=== PATIENT | male | born 1935 | race Caucasian/White ===

== ENCOUNTER 2018-03-20 12:03 | Inpatient (IN) | payer MEDICARE ==
[2018-03-20] MEDS ORDERED: Sodium Chloride 0.9% 1,000 ML IV ONE (12:38)
[2018-03-20] MEDS ORDERED: cefTRIAXone IV 1 gm in Dextros 50 ML IV STA (12:38)
[2018-03-20] MEDS ORDERED: Albuterol 0.083% Inhal Sol (2.5 mg/3 mL) UD INH STA (12:38)
--- NOTE | 2018-03-20 12:38 | C.PDOC ---
History Of Present Illness Hx obtained via relative. 83 year old male presents to the ER with a complaint of cough and fever for the past week associated with decreased appetite. Patient was seen by Dr. Gilliam today who noticed patient had a low grade fever and advised patient to come to the ER for possible pneumonia. Patient has a Hx of non hodgkin's lymphoma, last treatment was in 06/2017. Patient was recently admitted at [facility] for low blood pressure. Denies change in mental status, diarrhea, nausea, vomiting, chest pain, SOB, or abdominal pain. Time Seen by Provider: 03/20/18 12:07 Chief Complaint (Nursing): Cough, Cold, Congestion History Per: Family History/Exam Limitations: no limitations Onset/Duration Of Symptoms: Days Current Symptoms Are (Timing): Still Present Sick Contacts (Context): None Associated Symptoms: Fever, Cough. denies: Nausea, Vomiting, Diarrhea, Other ( Chest pain, SOB, Abdominal pain) Ear Symptoms: Bilateral: None Recent travel outside of the [place]: No Past Medical History Reviewed: Historical Data, Nursing Documentation, Vital Signs Vital Signs: Last Vital Signs Temp 99.7 F H 03/20/18 12:26 Pulse 89 03/20/18 13:46 Resp 14 03/20/18 13:46 BP 108/64 03/20/18 13:46 Pulse Ox 93 L 03/20/18 13:46 - Medical History PMH: HTN Surgical History: Appendectomy Family History: States: Unknown Family Hx - Social History Hx Alcohol Use: No Hx Substance Use: No - Immunization History Hx Tetanus Toxoid Vaccination: No Hx Influenza Vaccination: No Hx Pneumococcal Vaccination: No Review Of Systems Except As Marked, All Systems Reviewed And Found Negative. Constitutional: Positive for: Fever, Other (Decreased appetite) Cardiovascular: Negative for: Chest Pain, Palpitations Respiratory: Positive for: Cough. Negative for: Shortness of Breath Gastrointestinal: Negative for: Nausea, Vomiting, Abdominal Pain, Diarrhea Neurological: Negative for: Weakness, Numbness, Altered Mental Status Physical Exam - Physical Exam Appears: Non-toxic Skin: Normal Color, Warm, Dry Head: Atraumatic, Normacephalic Eye(s): bilateral: Normal Inspection Oral Mucosa: Moist Neck: Normal, Supple Chest: Other (Port in place on right chest wall) Cardiovascular: Rhythm Regular Respiratory: Rhonchi (at right base), Other (Active nonproductive cough, Bronchocongestion) Gastrointestinal/Abdominal: Soft, No Tenderness Back: No CVA Tenderness Neurological/Psych: Oriented x3, Normal Speech ED Course And Treatment - Laboratory Results Result Diagrams: 03/20/18 13:10 03/20/18 13:10 O2 Sat by Pulse Oximetry: 96 (Room air) Pulse Ox Interpretation: Normal - Radiology CXR: Interpreted by Me (No prior for comparison), Viewed By Me CXR Interpretation: Yes: Other (Multiple curtis ball lesions, right greater than left) Progress - Re-Evaluation Re-evaluation Note: 03/20/18 14:27 SP NEB PS FEELS BETTER. VSS. SBP 108. D/W DR WHITE MED EXECUTIVE VICE PRESIDENT AND CHIEF FINANCIAL OFFICER WILL ADMIT - Data Reviewed Data Reviewed: Lab, Diagnostic imaging, EKG, Old records Medical Decision Making Medical Decision Making: Plan: * Blood work * EKG * CXR * Urinalysis * Albuterol nebulizer * IV fluids * Zithromax * Rocephin Disposition Counseled Patient/Family Regarding: Studies Performed, Diagnosis - Disposition Disposition: HOSPITALIZED Disposition Time: 14:28 Condition: STABLE Forms: [employer] (Setswana) - POA Present On Arrival: None Core Measure Indicators: Pneumonia - Clinical Impression Clinical Impression: Pneumonia, Non-Hodgkin lymphoma - Scribe Statement The provider has reviewed the documentation as recorded by the Scribe Rakan Bowie All medical record entries made by the Scribe were at my direction and personally dictated by me. I have reviewed the chart and agree that the record accurately reflects my personal performance of the history, physical exam, medical decision making, and the department course for this patient. I have also personally directed, reviewed, and agree with the discharge instructions and disposition. Decision To Admit - Pt Status Changed To: Hospital Disposition Of: Inpatient - Admit Certification Admit to Inpatient:: After my assessment, the patient will require hospitalization for at least two midnights. This is because of the severity of symptoms shown, intensity of services needed, and/or the medical risk in this patient being treated as an outpatient. - InPatient: Physician Admission Certification:: SEE NOTE - . Bed Request Type: Regular Admitting Physician: Dara White Patient Diagnosis: Pneumonia, Non-Hodgkin lymphoma
[2018-03-20] MEDS ORDERED: Azithromycin 500mg/250ML NS 500 MG/250 ML BAG IV STA (12:41)
[2018-03-20] MEDS ORDERED: cefTRIAXone IV 1 gm in Dextros 50 ML IVPB ONE (13:09)
[2018-03-20] MEDS ORDERED: Albuterol-Ipratrop 3 mg / 0.5 (3 ml) UD ONE ×2 (13:17→20:44)
[2018-03-20 13:25] LABS: BASO # 0.1 K/uL (0.0-0.2); BASO % 0.6 % (0.0-2.0); EOS # 0.2 K/uL (0.0-0.7); EOS % 1.1 % (0.0-4.0); HEMOGLOBIN 10.9 g/dL (12.0-18.0); LYMPH # 0.8 K/uL (1.0-4.3); LYMPH % 5.3 % (20.0-40.0); MEAN CELL VOLUME 85.2 fL (80.0-94.0); MEAN CORPUSCULAR HEMOGLOBIN 28.3 pg (27.0-31.0); MEAN CORPUSCULAR HGB CONC 33.2 g/dL (33.0-37.0); MEAN PLATELET VOLUME 10.6 fL (7.2-11.7); MONO # 2.1 K/uL (0.0-0.8); MONO % 13.2 % (0.0-10.0); NEUT # 12.8 K/uL (1.8-7.0); NEUT % 79.8 % (50.0-75.0); PLATELET COUNT 136 K/uL (130-400); RBC 3.85 Mil/uL (4.40-5.90); RED CELL DISTRIBUTION WIDTH 20.1 % (11.5-14.5)
--- NOTE | 2018-03-20 13:35 | RAD ---
Chest x-ray single frontal view History: Pneumonia. Comparison: None available. Findings: Multiple pulmonary masses seen throughout both lungs which may represent underlying metastatic disease and or neoplasm. Correlation with chest CT is recommended. Confluent consolidative changes at the lung bases. Bilateral hilar prominence. Right chest wall port with tip extending into the cavoatrial junction. Degenerative changes in the spine and shoulders. Impression: Multiple pulmonary masses seen throughout both lungs which may represent underlying metastatic disease and or neoplasm. Correlation with chest CT is recommended. Confluent consolidative changes at the lung bases. Bilateral hilar prominence. Right chest wall port with tip extending into the cavoatrial junction.
[2018-03-20 13:45] LABS: ALB/GLOB RATIO 1.2 (1.0-2.1); ALBUMIN 2.9 g/dL (3.5-5.0); ANISOCYTOSIS SLIGHT; CALCIUM 9.2 mg/dl (8.6-10.4); EOSINOPHIL 3 % (0-4); HYPOCHROMIC SLIGHT; LYMPHOCYTE 8 % (20-40); MONOCYTE 14 % (0-10); NEUTROPHIL 75 % (50-75); PLATELET ESTIMATE NORMAL (NORMAL); POIKILOCYTOSIS SLIGHT; TOTAL CELLS COUNTED 100
[2018-03-20 13:46] LABS: MICROCYTOSIS SLIGHT
[2018-03-20] MEDS ORDERED: Azithromycin 500mg/250ML NS 500 MG/250 ML BAG IVPB ONE (13:51)
--- NOTE | 2018-03-20 14:15 | CT ---
Date of Service: 03/20/18 CT chest without IV contrast Indication: COUGH, ABN CXR. HO NONHODG LYMPHOMA Technique: Contiguous axial images were obtained through the chest without intravenous contrast enhancement. Sagittal and coronal reconstructions were generated and reviewed. This CT exam was performed using 1 or more of the following dose reduction techniques: Automated exposure control, adjustment of the MAA and/or kV according to patient size, and/or use of iterative reconstruction technique. Radiation dose (DLP): 290.76 MGy-cm. Comparison: Chest x-ray performed 03/20/18 Findings: Right-sided MediPort extends the level of the right atrium. Visualized portions of the inferior thyroid gland appear heterogeneous. . The mediastinal and hilar vascular structures appear within normal limits. The heart appears within normal limits of size. Dense atherosclerotic calcifications including coronary artery calcifications. Mediastinal adenopathy including 9 mm pretracheal lymph node. Please note evaluation for adenopathy is limited due to lack of IV contrast. Innumerable bilateral pulmonary masses compatible with metastatic disease. Largest lesion measures approximately 4.6 cm within the lateral right lower lobe. No focal consolidation. No pleural effusion. No pneumothorax. Limited visualization of the noncontrast upper abdomen: Bilateral low-density renal lesions including 4.2 x 5.1 cm low-density left renal lesion measuring approximately 11 HU (likely cyst), and partially imaged 3.1 x 4.7 cm right lower pole renal hypodensity also measuring approximately 11 HU. Degenerative changes of the spine. Impression: Right-sided MediPort extends the level the right atrium. Innumerable bilateral pulmonary masses consistent with metastatic disease. Mediastinal adenopathy. Partially imaged bilateral low-density renal lesions may reflect cysts, however incompletely characterized due to lack of IV contrast and incomplete inclusion within the confines of a chest CT. Additional findings as above.
--- NOTE | 2018-03-20 15:13 | CP.PCM.PN ---
Subjective - Date & Time of Evaluation Date of Evaluation: 03/20/18 Time of Evaluation: 15:13 - Subjective Subjective: PGY2 Medicine Note for Dr. White Patient is a 83 year old male with a past medical history of Non-Hodgkin's Lymphoma (s/p chemo - last dose 06/2017), gout, BPH and hypotension (hx of multiple falls) presenting to the hospital after being instructed to come to in by Dr. Gilliam. The patient is latvian speaking. His daughter is at bedside and translated for patient. Patient has a history of a non-productive cough. Over the past week the cough has been becoming more and more productive. He has been producing large amounts of clear phlegm. The patient has also been experiencing low grade fevers. Patient also has a history of hypotension. He normally is admitted to [facility] but decided to come here today. He has no other complaints at this time. Denies nausea, vomiting, diarrhea, constipation, chest pain, shortness of breath, abdominal pain, numbness or tingling. PMD: [facility]. Michelle Kellogg ([facility]) PMH: Non-Hodgkin's Lymphoma (s/p chemo - last dose 06/2017), gout, BPH and hypotension (hx of multiple falls) PSH: Portacath (right side), Appendectomy Social: Denies tobacco, alcohol and illicit drug use Objective - Vital Signs/Intake and Output Vital Signs (last 24 hours): Temp Pulse Resp BP Pulse Ox 99.7 F H 89 14 108/64 96 03/20/18 12:26 03/20/18 13:46 03/20/18 13:46 03/20/18 13:46 03/20/18 14:32 - Medications Medications: Current Medications Sodium Chloride (Sodium Chloride 0.9%) 1,000 mls @ 100 mls/hr IV .Q10H ONE Stop: 03/20/18 22:37 Last Admin: 03/20/18 13:07 Dose: 100 mls/hr - Labs Labs: 03/20/18 13:10 03/20/18 13:10 - Constitutional Appears: No Acute Distress, Chronically Ill - Head Exam Head Exam: ATRAUMATIC, NORMOCEPHALIC - Eye Exam Eye Exam: EOMI. absent: Normal appearance (Cataracts ), Scleral icterus - ENT Exam ENT Exam: Mucous Membranes Moist - Neck Exam Neck Exam: absent: Lymphadenopathy - Respiratory Exam Respiratory Exam: Clear to Ausculation Bilateral, NORMAL BREATHING PATTERN ( patient coughing throughout examination). absent: Accessory Muscle Use, Rales, Rhonchi, Wheezes, Respiratory Distress - Cardiovascular Exam Cardiovascular Exam: REGULAR RHYTHM, +S1, +S2 Additional comments: Port in place on right chest wall - GI/Abdominal Exam GI & Abdominal Exam: Soft. absent: Distended, Firm, Guarding, Rigid, Tenderness - Extremities Exam Extremities Exam: Normal Inspection. absent: Calf Tenderness, Pedal Edema - Back Exam Back Exam: NORMAL INSPECTION. absent: CVA tenderness (L), CVA tenderness (R), paraspinal tenderness, rash noted, tenderness, vertebral tenderness - Neurological Exam Neurological Exam: Alert, Awake, Oriented x3 - Psychiatric Exam Psychiatric exam: Normal Affect, Normal Mood - Skin Skin Exam: Dry, Warm Assessment and Plan - Assessment and Plan (Free Text) Plan: Non-Hodgkin's Lymphoma/Pneumonia Hem/Onc consulted, Dr. Gilliam (pt's outpatient Oncologist) afebrile WBC 16 VBG pending Blood Cultures 03/20: pending Urine Cultures 03/20: pending CXR 03/20: * Multiple pulmonary masses seen throughout both lungs which may represent underlying metastatic disease and or neoplasm. Correlation with chest CT is recommended * Confluent consolidative changes at the lung bases * Bilateral hilar prominence * Right chest wall port with tip extending into the cavoatrial junction Chest CT w/o IV contrast 03/20: * Right-sided MediPort extends the level the right atrium * Innumerable bilateral pulmonary masses consistent with metastatic disease * Mediastinal adenopathy * Partially imaged bilateral low-density renal lesions may reflect cysts, however incompletely characterized due to lack of IV contrast and incomplete inclusion within the confines of a chest CT Medications: * Azithromycin 500mg IVPB daily (started on 03/20) * Rocephin 1gm IVPB daily (started on 03/20) * Duoneb 3mL INH q6h prn * Benzonatate 200mg PO daily * Calcitriol 0.25mcg PO MWF hx of Hypotension continue to monitor hx of BPH restart home meds: * Tamsulosin 0.4mg PO daily * Finasteride 5mg PO daily hx of Gout restart home meds: * Allopurinol 300mg PO daily Prophylactic Care DVT: Heparin 5,000u SC q12h GI: Protonix 40mg PO daily (home medication) SCDs Crestor 20mg PO daily (home medication) All medical management per Dr. White
[2018-03-20 16:15] LABS: SQUAMOUS EPITHIAL < 1 /hpf (0-5); URINE BACTERIA RARE (<OCC); URINE BILIRUBIN NEGATIVE (NEGATIVE); URINE BLOOD NEGATIVE (NEGATIVE); URINE CLARITY Clear (Clear); URINE COLOR Yellow (YELLOW); URINE GLUCOSE (UA) NORMAL (Normal); URINE LEUKOCYTE ESTERASE 2+ Leu/uL (Negative); URINE PROTEIN NEGATIVE (NEGATIVE)
[2018-03-20] MEDS: Sodium Chloride 0.9% 1,000 ML IV SCH (17:54)
[2018-03-20] MEDS: Albuterol-Ipratrop 3 mg / 0.5 (3 ml) UD INH PRN (20:47)
[2018-03-21 07:29] LABS: BASO # 0.1 K/uL (0.0-0.2); BASO % 0.6 % (0.0-2.0); EOS # 0.3 K/uL (0.0-0.7); EOS % 2.5 % (0.0-4.0); HEMOGLOBIN 9.6 g/dL (12.0-18.0); LYMPH # 0.8 K/uL (1.0-4.3); LYMPH % 5.9 % (20.0-40.0); MEAN CELL VOLUME 84.9 fL (80.0-94.0); MEAN CORPUSCULAR HEMOGLOBIN 28.6 pg (27.0-31.0); MEAN CORPUSCULAR HGB CONC 33.7 g/dL (33.0-37.0); MEAN PLATELET VOLUME 10.7 fL (7.2-11.7); MONO # 1.7 K/uL (0.0-0.8); MONO % 13.4 % (0.0-10.0); NEUT % 77.6 % (50.0-75.0); PLATELET COUNT 137 K/uL (130-400); RBC 3.36 Mil/uL (4.40-5.90); RED CELL DISTRIBUTION WIDTH 19.9 % (11.5-14.5); WHITE BLOOD COUNT 12.8 K/uL (4.8-10.8)
[2018-03-21 07:43] LABS: ALB/GLOB RATIO 1.2 (1.0-2.1); ALBUMIN 2.4 g/dL (3.5-5.0); ALT/SGPT 32 U/L (21-72); AST/SGOT 12 U/L (17-59); BLOOD UREA NITROGEN 22 mg/dL (9-20); CALCIUM 8.1 mg/dl (8.6-10.4); GFR NON-AFRICAN AMERICAN > 60
[2018-03-21 09:27] LABS: BANDS 1 % (0-2); TOTAL CELLS COUNTED 100
[2018-03-21 09:28] LABS: ANISOCYTOSIS SLIGHT; HYPOCHROMIC SLIGHT; LYMPHOCYTE 5 % (20-40); MONOCYTE 12 % (0-10); NEUTROPHIL 82 % (50-75); PLATELET ESTIMATE NORMAL (NORMAL); POIKILOCYTOSIS SLIGHT
[2018-03-21] MEDS ORDERED: Piperacill/Tazo 2.25gm in Dex 2.25 GM/50 ML BAG IVPB SCH (10:00)
[2018-03-21] MEDS ORDERED: Vancomycin 1 gm/NS 200 ml 1 GM/200 ML BAG IVPB SCH (10:00)
[2018-03-21] MEDS: Pantoprazole 40 mg EC Tab PO SCH (10:51)
[2018-03-21] MEDS: Azithromycin 500 MG in Sodium Chloride 0.9% 250 ML IVPB SCH (10:53)
[2018-03-21] MEDS: Sodium Chloride 0.9% 1,000 ML IV SCH (13:47)
--- NOTE | 2018-03-21 14:49 | CP.PCM.PN ---
Subjective - Date & Time of Evaluation Date of Evaluation: 03/21/18 Time of Evaluation: 14:46 - Subjective Subjective: PROGRESS NOTE FOR DR. ZUÑIGA'S SERVICE Pt seen and examined at bedside. She denies any acute complaints including chest pain/SOB. She reports improvement in her overall status. No acute events overnight as per nursing. Objective - Vital Signs/Intake and Output Vital Signs (last 24 hours): Temp Pulse Resp BP Pulse Ox 98.1 F 82 18 122/68 96 03/21/18 07:00 03/21/18 07:00 03/21/18 07:00 03/21/18 07:00 03/21/18 07:00 Intake and Output: 03/21/18 03/21/18 06:59 18:59 Intake Total 170 Balance 170 - Medications Medications: Current Medications Albuterol/Ipratropium (Duoneb 3 Mg/0.5 Mg (3 Ml) Ud) 3 ml INH RQ6 PRN PRN Reason: Shortness of Breath Last Admin: 03/20/18 20:47 Dose: 3 ml Allopurinol (Zyloprim) 300 mg PO DAILY [facility] Last Admin: 03/21/18 10:48 Dose: 300 mg Benzonatate (Tessalon Perles) 200 mg PO DAILY [facility] Last Admin: 03/21/18 10:52 Dose: 200 mg Calcitriol (Rocaltrol) 0.25 mcg PO MWF [facility] Finasteride (Proscar) 5 mg PO DAILY [facility] Last Admin: 03/21/18 10:51 Dose: 5 mg Heparin Sodium (Porcine) (Heparin) 5,000 units SC Q12 SARAH Last Admin: 03/21/18 10:52 Dose: 5,000 units Azithromycin 500 mg/ Sodium (Chloride) 250 mls @ 250 mls/hr IVPB DAILY SARAH PRN Reason: Protocol Last Admin: 03/21/18 10:53 Dose: 250 mls/hr Ceftriaxone Sodium 1 gm/ (Sodium Chloride) 100 mls @ 100 mls/hr IVPB DAILY SARAH PRN Reason: Protocol Last Admin: 03/21/18 10:52 Dose: 100 mls/hr Sodium Chloride (Sodium Chloride 0.9%) 1,000 mls @ 50 mls/hr IV .Q20H [facility] Last Admin: 03/20/18 17:54 Dose: 50 mls/hr Pantoprazole Sodium (Protonix Ec Tab) 40 mg PO DAILY [facility] Last Admin: 03/21/18 10:51 Dose: 40 mg Pneumococcal Polyvalent Vaccine (Pneumovax 23 Vaccine) 0.5 ml IM .ONCE ONE Stop: 03/22/18 10:01 Rosuvastatin Calcium (Crestor) 20 mg PO HS [facility] Last Admin: 03/20/18 22:23 Dose: 20 mg Tamsulosin HCl (Flomax) 0.4 mg PO DAILY [facility] Last Admin: 03/21/18 10:51 Dose: 0.4 mg Zolpidem Tartrate (Ambien) 5 mg PO HS PRN PRN Reason: Insomnia Last Admin: 03/20/18 22:23 Dose: 5 mg - Labs Labs: 03/21/18 07:08 03/21/18 07:08 - Constitutional Appears: No Acute Distress (continuous coughing) - Head Exam Head Exam: ATRAUMATIC, NORMOCEPHALIC - Eye Exam Eye Exam: EOMI, Normal appearance - ENT Exam ENT Exam: Mucous Membranes Moist - Respiratory Exam Respiratory Exam: Clear to Ausculation Bilateral, NORMAL BREATHING PATTERN - Cardiovascular Exam Cardiovascular Exam: REGULAR RHYTHM, +S1, +S2 - GI/Abdominal Exam GI & Abdominal Exam: Soft. absent: Tenderness - Extremities Exam Extremities Exam: absent: Pedal Edema - Neurological Exam Neurological Exam: Alert, Awake, Oriented x3 - Psychiatric Exam Psychiatric exam: Normal Affect, Normal Mood - Skin Skin Exam: Dry, Warm Assessment and Plan - Assessment and Plan (Free Text) Plan: Non-Hodgkin's Lymphoma/Pneumonia Hem/Onc consulted, Dr. Gilliam (pt's outpatient Oncologist) afebrile WBC 16-> 12.8 Blood Cultures 03/20: no growth Urine Cultures 03/20: no growth Sputum cx 03/21: pending Quant gold: pending CXR 03/20: * Multiple pulmonary masses seen throughout both lungs which may represent underlying metastatic disease and or neoplasm. Correlation with chest CT is recommended * Confluent consolidative changes at the lung bases * Bilateral hilar prominence * Right chest wall port with tip extending into the cavoatrial junction Chest CT w/o IV contrast 03/20: * Right-sided MediPort extends the level the right atrium * Innumerable bilateral pulmonary masses consistent with metastatic disease * Mediastinal adenopathy * Partially imaged bilateral low-density renal lesions may reflect cysts, however incompletely characterized due to lack of IV contrast and incomplete inclusion within the confines of a chest CT Medications: * Azithromycin 500mg IVPB daily (started on 03/20) * Rocephin 1gm IVPB daily (started on 03/20) * Duoneb 3mL INH q6h prn * Benzonatate 200mg PO daily * Calcitriol 0.25mcg PO MWF hx of Hypotension continue to monitor hx of BPH restart home meds: * Tamsulosin 0.4mg PO daily * Finasteride 5mg PO daily hx of Gout restart home meds: * Allopurinol 300mg PO daily Prophylactic Care DVT: Heparin 5,000u SC q12h GI: Protonix 40mg PO daily (home medication) SCDs Crestor 20mg PO daily (home medication) Case discussed with Dr. Zuñiga. Noted poor prognosis. All medical management per Dr. Zuñiga
[2018-03-21 18:43] VITALS: BMI 22.1
--- NOTE | 2018-03-21 19:01 | CON ---
Copied To: Renny Gilliam MD Attending MD: Renny Gilliam MD DATE: 03/21/2018 HISTORY OF PRESENT ILLNESS: This is an 83-year-old man with lymphoma and sepsis. 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 He has completed that about six months ago. He came in to the office yesterday morning saying that he had been coughing, having phlegm, chills for about a week. When he came in to the office, sitting up his blood pressure was , pulse of 101, temperature was 101, and severely orthostatic. We called the ambulance and sent him to the emergency room. PHYSICAL EXAMINATION: SKIN: No petechiae. No bruises. HEENT: Anicteric. Nodes nonpalpable in the axillary, cervical, supraclavicular, or inguinal regions. LUNGS: With diffuse rhonchi bilaterally with wheezing. HEART: S1 and S2. ABDOMEN: Showed no liver, no spleen, no tenderness, and no rebound. EXTREMITIES: No edema. SALES DATA ANALYST: Plantars were downgoing bilaterally. LABORATORY DATA: I see on the blood tests the white count was 16,000, hemoglobin 11, and platelet count of 136. The white count repeat in the morning was 12.8, which is somewhat of an improvement. Most of the cells were polys and monocytes. The laboratory finding showed a BUN of 27 and creatinine 1.4, and liver function tests are actually normal. IMPRESSION AND PLAN: He has been put on antibiotics and ceftriaxone and azithromycin, and blood cultures have been sent. So at this point, we are treating him for pneumonia. His CAT scan of the lung showed the mediastinal lymph nodes have been essentially negative, but a bilateral pulmonary mass is compatible with metastatic disease. It is unclear what that is. So, they are reading this as innumerable bilateral pulmonary masses consistent with metastatic disease and they are reading mediastinal adenopathy, but since the largest one was a 9-mm peritracheal lymph node. So, it is unclear we are going to have to follow up on this CAT scan after he receives his antibiotics for several days, so we will have to repeat the CAT scan after the antibiotics for several days. Renny Gilliam MD
--- NOTE | 2018-03-22 07:03 | HP ---
Copied To: Dara White MD Attending MD: Dara White MD HISTORY OF PRESENT ILLNESS: An 83-year-old male, history of non-Hodgkin lymphoma, admitted to the hospital with chief complaint of dizziness, fatigue, tiredness. The patient came to the ER and was advised admission. The patient is followed by oncologist Dr. Gilliam. PHYSICAL EXAMINATION: GENERAL: The patient is awake, alert, combative VITAL SIGNS: Temperature 98, pulse 90. HEENT: Within normal limits. NECK: Supple. CHEST: Symmetrical. HEART: Regular. ABDOMEN: Soft. EXTREMITIES: No edema. ASSESSMENT AND PLAN: Patient suffers from pneumonia and non-Hodgkin lymphoma. The patient to get bed rest and supportive care and antibiotics. Dara White MD
[2018-03-22 07:45] LABS: BASO # 0.1 K/uL (0.0-0.2); BASO % 0.7 % (0.0-2.0); EOS # 0.5 K/uL (0.0-0.7); EOS % 3.8 % (0.0-4.0); HEMOGLOBIN 9.4 g/dL (12.0-18.0); LYMPH # 0.8 K/uL (1.0-4.3); LYMPH % 6.1 % (20.0-40.0); MEAN CELL VOLUME 84.6 fL (80.0-94.0); MEAN CORPUSCULAR HEMOGLOBIN 28.9 pg (27.0-31.0); MEAN CORPUSCULAR HGB CONC 34.1 g/dL (33.0-37.0); MEAN PLATELET VOLUME 11.1 fL (7.2-11.7); MONO # 1.7 K/uL (0.0-0.8); MONO % 13.2 % (0.0-10.0); NEUT # 10.1 K/uL (1.8-7.0); NEUT % 76.2 % (50.0-75.0); PLATELET COUNT 145 K/uL (130-400); RBC 3.27 Mil/uL (4.40-5.90); RED CELL DISTRIBUTION WIDTH 20.8 % (11.5-14.5); WHITE BLOOD COUNT 13.2 K/uL (4.8-10.8)
[2018-03-22 07:51] LABS: ALB/GLOB RATIO 1.1 (1.0-2.1); ALBUMIN 2.3 g/dL (3.5-5.0); ALT/SGPT 34 U/L (21-72); AST/SGOT 18 U/L (17-59); BLOOD UREA NITROGEN 18 mg/dL (9-20); CALCIUM 8.4 mg/dl (8.6-10.4); GFR NON-AFRICAN AMERICAN > 60
[2018-03-22] MEDS: Albuterol-Ipratrop 3 mg / 0.5 (3 ml) UD INH PRN (08:22)
--- NOTE | 2018-03-22 09:08 | CP.PCM.PN ---
Subjective - Date & Time of Evaluation Date of Evaluation: 03/22/18 Time of Evaluation: 07:50 - Subjective Subjective: PGY3 Resident - Medicine Progress Note Patient seen and examined at bedside. No acute distress. No overnight events. Patient felt very SOB this morning, and desaturated to 87% on 5L NC. He was placed on a non-rebreather and symptoms resolved. He continues to have excessive coughing, which is a chronic issue for him (as explained by his ) . 12-point review of systems is otherwise negative without any additional acute complaints. Objective - Vital Signs/Intake and Output Vital Signs (last 24 hours): Temp Pulse Resp BP Pulse Ox 98.7 F 82 22 106/61 95 03/22/18 07:00 03/22/18 07:00 03/22/18 08:10 03/22/18 07:00 03/22/18 08:16 Intake and Output: 03/22/18 03/22/18 06:59 18:59 Intake Total 700 Balance 700 - Medications Medications: Current Medications Albuterol/Ipratropium (Duoneb 3 Mg/0.5 Mg (3 Ml) Ud) 3 ml INH RQ6 PRN PRN Reason: Shortness of Breath Last Admin: 03/22/18 08:22 Dose: 3 ml Allopurinol (Zyloprim) 300 mg PO DAILY [facility] Last Admin: 03/21/18 10:48 Dose: 300 mg Benzonatate (Tessalon Perles) 200 mg PO DAILY [facility] Last Admin: 03/21/18 10:52 Dose: 200 mg Calcitriol (Rocaltrol) 0.25 mcg PO MWF [facility] Finasteride (Proscar) 5 mg PO DAILY [facility] Last Admin: 03/21/18 10:51 Dose: 5 mg Heparin Sodium (Porcine) (Heparin) 5,000 units SC Q12 [facility] Last Admin: 03/21/18 21:17 Dose: 5,000 units Azithromycin 500 mg/ Sodium (Chloride) 250 mls @ 250 mls/hr IVPB DAILY [facility] PRN Reason: Protocol Last Admin: 03/21/18 10:53 Dose: 250 mls/hr Ceftriaxone Sodium 1 gm/ (Sodium Chloride) 100 mls @ 100 mls/hr IVPB DAILY [facility] PRN Reason: Protocol Last Admin: 03/21/18 10:52 Dose: 100 mls/hr Sodium Chloride (Sodium Chloride 0.9%) 1,000 mls @ 50 mls/hr IV .Q20H [facility] Last Admin: 03/21/18 13:47 Dose: Not Given Pantoprazole Sodium (Protonix Ec Tab) 40 mg PO DAILY [facility] Last Admin: 03/21/18 10:51 Dose: 40 mg Pneumococcal Polyvalent Vaccine (Pneumovax 23 Vaccine) 0.5 ml IM .ONCE ONE Stop: 03/22/18 10:01 Rosuvastatin Calcium (Crestor) 20 mg PO HS [facility] Last Admin: 03/21/18 21:17 Dose: 20 mg Tamsulosin HCl (Flomax) 0.4 mg PO DAILY [facility] Last Admin: 03/21/18 10:51 Dose: 0.4 mg Zolpidem Tartrate (Ambien) 5 mg PO HS PRN PRN Reason: Insomnia Last Admin: 03/21/18 21:17 Dose: 5 mg - Labs Labs: 03/22/18 07:15 03/22/18 07:15 - Additional Findings Additional findings: - Constitutional Appears: No Acute Distress (continuous coughing) - Head Exam Head Exam: ATRAUMATIC, NORMOCEPHALIC - Eye Exam Eye Exam: EOMI, Normal appearance - ENT Exam ENT Exam: Mucous Membranes Moist - Respiratory Exam Respiratory Exam: Rhonchi (mild), Decreased Breath Sounds. absent: Wheezes - Cardiovascular Exam Cardiovascular Exam: REGULAR RHYTHM, +S1, +S2 - GI/Abdominal Exam GI & Abdominal Exam: Soft. absent: Tenderness - Extremities Exam Extremities Exam: absent: Pedal Edema - Neurological Exam Neurological Exam: Alert, Awake, Oriented x3 - Psychiatric Exam Psychiatric exam: Normal Affect, Normal Mood - Skin Skin Exam: Dry, Warm Assessment and Plan - Assessment and Plan (Free Text) Assessment: Non-Hodgkin's Lymphoma/Pneumonia 03/22: Start phenergan DM q4H pRN cough Hem/Onc consulted, Dr. Gilliam (pt's outpatient Oncologist) Urine culture negative BC negative afebrile WBC 16-> 12.8 Blood Cultures 03/20: no growth Urine Cultures 03/20: no growth Sputum cx 03/21: pending Quant gold: pending CXR 03/20: * Multiple pulmonary masses seen throughout both lungs which may represent underlying metastatic disease and or neoplasm. Correlation with chest CT is recommended * Confluent consolidative changes at the lung bases * Bilateral hilar prominence * Right chest wall port with tip extending into the cavoatrial junction Chest CT w/o IV contrast 03/20: * Right-sided MediPort extends the level the right atrium * Innumerable bilateral pulmonary masses consistent with metastatic disease * Mediastinal adenopathy * Partially imaged bilateral low-density renal lesions may reflect cysts, however incompletely characterized due to lack of IV contrast and incomplete inclusion within the confines of a chest CT Medications: * Azithromycin 500mg IVPB daily (started on 03/20) * Rocephin 1gm IVPB daily (started on 03/20) * Duoneb 3mL INH q6h prn * Benzonatate 200mg PO daily * Calcitriol 0.25mcg PO MWF hx of Hypotension continue to monitor hx of BPH restart home meds: * Tamsulosin 0.4mg PO daily * Finasteride 5mg PO daily hx of Gout restart home meds: * Allopurinol 300mg PO daily Prophylactic Care DVT: Heparin 5,000u SC q12h GI: Protonix 40mg PO daily (home medication) SCDs Crestor 20mg PO daily (home medication) Case discussed with Dr. White. Noted poor prognosis. All medical management per Dr. White
[2018-03-22] MEDS: Pantoprazole 40 mg EC Tab PO SCH (09:18)
[2018-03-22] MEDS: Sodium Chloride 0.9% 1,000 ML IV SCH (09:45)
[2018-03-22] MEDS ORDERED: Pneumococcal 23-Valent Vaccine IM ONE (10:00)
[2018-03-22 10:04] LABS: ANISOCYTOSIS MODERATE; BANDS 3 % (0-2); EOSINOPHIL 2 % (0-4); LYMPHOCYTE 6 % (20-40); MONOCYTE 13 % (0-10); NEUTROPHIL 76 % (50-75); PLATELET ESTIMATE NORMAL (NORMAL); TOTAL CELLS COUNTED 100
[2018-03-22 10:05] LABS: HYPOCHROMIC SLIGHT; OVALOCYTES SLIGHT
[2018-03-22] MEDS: Azithromycin 500 MG in Sodium Chloride 0.9% 250 ML IVPB SCH (10:54)
[2018-03-22] MEDS: Promethazine DM 6.25 mg-15 mg/5 ml Syrup PO PRN (14:04)
--- NOTE | 2018-03-22 18:03 | CARD ---
APPROVED REPORT Date of service: 03/20/2018 EKG Measurement Heart [id number] <Conclusion> Normal sinus rhythm Nonspecific ST abnormality Abnormal ECG
[2018-03-23] MEDS: Sodium Chloride 0.9% 1,000 ML IV SCH (03:00)
[2018-03-23 07:21] LABS: BASO # 0.1 K/uL (0.0-0.2); BASO % 0.6 % (0.0-2.0); EOS # 0.6 K/uL (0.0-0.7); HEMOGLOBIN 9.1 g/dL (12.0-18.0); LYMPH # 0.7 K/uL (1.0-4.3); MEAN CELL VOLUME 84.9 fL (80.0-94.0); MEAN CORPUSCULAR HEMOGLOBIN 28.5 pg (27.0-31.0); MEAN CORPUSCULAR HGB CONC 33.6 g/dL (33.0-37.0); MEAN PLATELET VOLUME 10.8 fL (7.2-11.7); MONO % 13.9 % (0.0-10.0); NEUT # 10.9 K/uL (1.8-7.0); NEUT % 76.5 % (50.0-75.0); PLATELET COUNT 143 K/uL (130-400); RBC 3.19 Mil/uL (4.40-5.90); RED CELL DISTRIBUTION WIDTH 20.5 % (11.5-14.5); WHITE BLOOD COUNT 14.2 K/uL (4.8-10.8)
[2018-03-23 08:17] LABS: ALB/GLOB RATIO 1.1 (1.0-2.1); ALBUMIN 2.2 g/dL (3.5-5.0); ALT/SGPT 32 U/L (21-72); AST/SGOT 15 U/L (17-59); BLOOD UREA NITROGEN 17 mg/dL (9-20); CALCIUM 8.6 mg/dl (8.6-10.4); GFR NON-AFRICAN AMERICAN > 60
[2018-03-23 08:31] LABS: ANISOCYTOSIS SLIGHT; EOSINOPHIL 1 % (0-4); LYMPHOCYTE 4 % (20-40); MONOCYTE 5 % (0-10); NEUTROPHIL 90 % (50-75); PLATELET ESTIMATE NORMAL (NORMAL); TOTAL CELLS COUNTED 100
[2018-03-23 08:32] LABS: HYPOCHROMIC MODERATE; OVALOCYTES SLIGHT; POLYCHROMIC SLIGHT; TARGET CELLS SLIGHT
[2018-03-23] MEDS: Promethazine DM 6.25 mg-15 mg/5 ml Syrup PO PRN ×2 (09:07→18:34)
[2018-03-23] MEDS: Pantoprazole 40 mg EC Tab PO SCH (09:08)
[2018-03-23] MEDS: Azithromycin 500 MG in Sodium Chloride 0.9% 250 ML IVPB SCH (09:09)
[2018-03-24] MEDS: Sodium Chloride 0.9% 1,000 ML IV SCH (05:47)
[2018-03-24 07:28] LABS: BASO # 0.1 K/uL (0.0-0.2); BASO % 0.7 % (0.0-2.0); EOS # 0.5 K/uL (0.0-0.7); EOS % 3.5 % (0.0-4.0); HEMOGLOBIN 8.7 g/dL (12.0-18.0); LYMPH # 0.6 K/uL (1.0-4.3); LYMPH % 4.8 % (20.0-40.0); MEAN CELL VOLUME 84.5 fL (80.0-94.0); MEAN CORPUSCULAR HEMOGLOBIN 28.5 pg (27.0-31.0); MEAN CORPUSCULAR HGB CONC 33.7 g/dL (33.0-37.0); MEAN PLATELET VOLUME 11.1 fL (7.2-11.7); MONO # 1.6 K/uL (0.0-0.8); MONO % 12.3 % (0.0-10.0); NEUT # 10.1 K/uL (1.8-7.0); NEUT % 78.7 % (50.0-75.0); PLATELET COUNT 139 K/uL (130-400); RBC 3.06 Mil/uL (4.40-5.90); RED CELL DISTRIBUTION WIDTH 20.7 % (11.5-14.5); WHITE BLOOD COUNT 12.8 K/uL (4.8-10.8)
[2018-03-24 07:51] LABS: ALB/GLOB RATIO 1.1 (1.0-2.1); ALBUMIN 2.2 g/dL (3.5-5.0); ALT/SGPT 37 U/L (21-72); AST/SGOT 13 U/L (17-59); BLOOD UREA NITROGEN 17 mg/dL (9-20); CALCIUM 8.6 mg/dl (8.6-10.4); GFR NON-AFRICAN AMERICAN > 60
[2018-03-24 08:39] LABS: EOSINOPHIL 2 % (0-4); MONOCYTE 13 % (0-10); TOTAL CELLS COUNTED 100
[2018-03-24 08:40] LABS: ANISOCYTOSIS SLIGHT; HYPOCHROMIC SLIGHT; LYMPHOCYTE 3 % (20-40); NEUTROPHIL 82 % (50-75); PLATELET ESTIMATE NORMAL (NORMAL); POIKILOCYTOSIS SLIGHT
[2018-03-24 08:41] LABS: OVALOCYTES SLIGHT; TARGET CELLS SLIGHT
[2018-03-24] MEDS: Pantoprazole 40 mg EC Tab PO SCH (10:13)
[2018-03-24] MEDS: Azithromycin 500 MG in Sodium Chloride 0.9% 250 ML IVPB SCH (11:00)
[2018-03-24] MEDS ORDERED: Potassium Chloride 20 mEq ER Tab PO STA (14:00)
[2018-03-24] MEDS: Promethazine DM 6.25 mg-15 mg/5 ml Syrup PO PRN ×2 (17:33→17:34)
[2018-03-25] MEDS: Sodium Chloride 0.9% 1,000 ML IV SCH (04:50)
[2018-03-25 07:47] LABS: ALBUMIN 1.9 g/dL (3.5-5.0); ALT/SGPT 38 U/L (21-72); AST/SGOT 15 U/L (17-59); BLOOD UREA NITROGEN 18 mg/dL (9-20); CALCIUM 8.9 mg/dl (8.6-10.4); GFR NON-AFRICAN AMERICAN 58
--- NOTE | 2018-03-25 09:26 | PN ---
Copied To: Dara White MD Attending MD: Daar White MD DATE: 03/24/2018 The patient on IV antibiotics, supportive care. Continue treatment. Dara White MD [facility] # [id number]
[2018-03-25] MEDS ORDERED: Potassium Chloride 20 mEq ER Tab PO SCH (10:00)
[2018-03-25] MEDS: Pantoprazole 40 mg EC Tab PO SCH (10:00)
[2018-03-25] MEDS ORDERED: Acetylcholine 1% Opth System Pack IO ONE (13:41)
[2018-03-25] MEDS ORDERED: Sodium Chloride 0.9% 500 ML IV SCH (13:45)
[2018-03-25] MEDS ORDERED: Sodium Chloride 0.9% 1,000 ML IV SCH (14:00)
--- NOTE | 2018-03-25 15:13 | CP.PCM.PN ---
Subjective - Date & Time of Evaluation Date of Evaluation: 03/25/18 Time of Evaluation: 15:10 - Subjective Subjective: PGY III progress note for Dr. White Pt seen and examined at bedside. No acute events overnight. Patient continues to use non-rebreather mask for breathing assistance. Pt c/o shortness of breath and coughing. Denies having any F/C, CP, abd pain, N/v/D/c. Objective - Vital Signs/Intake and Output Vital Signs (last 24 hours): Temp Pulse Resp BP Pulse Ox 98.1 F 89 18 102/61 96 03/25/18 07:00 03/25/18 07:00 03/25/18 07:00 03/25/18 10:02 03/25/18 10:02 Intake and Output: 03/25/18 03/25/18 06:59 18:59 Intake Total 800 Balance 800 - Medications Medications: Current Medications Albuterol/Ipratropium (Duoneb 3 Mg/0.5 Mg (3 Ml) Ud) 3 ml INH RQ6 PRN PRN Reason: Shortness of Breath Last Admin: 03/22/18 08:22 Dose: 3 ml Allopurinol (Zyloprim) 300 mg PO DAILY [facility] Last Admin: 03/25/18 10:00 Dose: 300 mg Benzonatate (Tessalon Perles) 200 mg PO DAILY [facility] Last Admin: 03/25/18 09:58 Dose: 200 mg Calcitriol (Rocaltrol) 0.25 mcg PO MWF [facility] Last Admin: 03/25/18 10:00 Dose: 0.25 mcg Finasteride (Proscar) 5 mg PO DAILY [facility] Last Admin: 03/25/18 10:00 Dose: 5 mg Sodium Chloride (Sodium Chloride 0.9%) 1,000 mls @ 150 mls/hr IV .Q6H40M [facility] Pantoprazole Sodium (Protonix Ec Tab) 40 mg PO DAILY [facility] Last Admin: 03/25/18 10:00 Dose: 40 mg Potassium Chloride (K-Dur 20 Meq Er Tab) 20 meq PO DAILY [facility] Stop: 03/27/18 10:01 Last Admin: 03/25/18 10:00 Dose: 20 meq Promethazine HCl/Dextromethorphan (Phenergan Dm Syrup) 5 ml PO Q4 PRN PRN Reason: Cough Last Admin: 03/24/18 17:34 Dose: 5 ml Rosuvastatin Calcium (Crestor) 20 mg PO HS [facility] Last Admin: 03/24/18 22:11 Dose: 20 mg Tamsulosin HCl (Flomax) 0.4 mg PO DAILY [facility] Last Admin: 03/25/18 10:00 Dose: 0.4 mg Zolpidem Tartrate (Ambien) 5 mg PO HS PRN PRN Reason: Insomnia Last Admin: 03/24/18 22:11 Dose: 5 mg - Labs Labs: 03/24/18 07:17 03/25/18 07:11 - Constitutional Appears: Non-toxic, No Acute Distress - Head Exam Head Exam: ATRAUMATIC, NORMOCEPHALIC - ENT Exam ENT Exam: Mucous Membranes Moist - Respiratory Exam Respiratory Exam: Clear to Ausculation Bilateral, NORMAL BREATHING PATTERN. absent: Rales, Rhonchi, Wheezes - Cardiovascular Exam Cardiovascular Exam: REGULAR RHYTHM, +S1, +S2. absent: Gallop, Rubs, Murmur - GI/Abdominal Exam GI & Abdominal Exam: Soft, Normal Bowel Sounds. absent: Distended, Firm, Guarding, Rigid, Tenderness - Extremities Exam Extremities Exam: absent: Pedal Edema, Tenderness - Neurological Exam Neurological Exam: Alert, Awake, Oriented x3 - Psychiatric Exam Psychiatric exam: Normal Affect, Normal Mood - Skin Skin Exam: Dry, Intact, Normal Color, Warm Assessment and Plan - Assessment and Plan (Free Text) Assessment: Non-Hodgkin's Lymphoma/Pneumonia CXR 03/20: * Multiple pulmonary masses seen throughout both lungs which may represent underlying metastatic disease and or neoplasm. Correlation with chest CT is recommended * Confluent consolidative changes at the lung bases * Bilateral hilar prominence * Right chest wall port with tip extending into the cavoatrial junction Chest CT w/o IV contrast 03/20: * Right-sided MediPort extends the level the right atrium * Innumerable bilateral pulmonary masses consistent with metastatic disease * Mediastinal adenopathy * Partially imaged bilateral low-density renal lesions may reflect cysts, however incompletely characterized due to lack of IV contrast and incomplete inclusion within the confines of a chest CT Heme/onc, Dr. Gilliam consulted. Recommends getting CT neck/chest/abd/pelvis to assess for mets. Patient allergic to PO and IV contrast so will need to get noncontrast CT Medications: * Duoneb 3mL INH q6h prn * Benzonatate 200mg PO daily * Calcitriol 0.25mcg PO MWF * continue Rocephin and zithromax Hypotension continue to monitor BPH restart home meds: * Tamsulosin 0.4mg PO daily * Finasteride 5mg PO daily Gout restart home meds: * Allopurinol 300mg PO daily Insomnia Continue Ambien as needed HLD Crestor 20 mg po qd Prophylactic Care DVT: Heparin 5,000u SC q12h GI: Protonix 40mg PO daily (home medication) SCDs Case discussed with Dr. White. Noted poor prognosis. All medical management per Dr. White
[2018-03-25] MEDS: Azithromycin 500 MG in Sodium Chloride 0.9% 250 ML IVPB SCH (18:07)
[2018-03-26] MEDS ORDERED: Albuterol-Ipratrop 3 mg / 0.5 (3 ml) UD INH PRN (07:34)
[2018-03-26 08:30] LABS: BASO # 0.1 K/uL (0.0-0.2); BASO % 0.6 % (0.0-2.0); EOS # 0.5 K/uL (0.0-0.7); EOS % 3.7 % (0.0-4.0); HEMOGLOBIN 8.2 g/dL (12.0-18.0); LYMPH # 0.6 K/uL (1.0-4.3); LYMPH % 4.9 % (20.0-40.0); MEAN CELL VOLUME 84.7 fL (80.0-94.0); MEAN CORPUSCULAR HEMOGLOBIN 28.8 pg (27.0-31.0); MONO # 1.9 K/uL (0.0-0.8); MONO % 15.2 % (0.0-10.0); NEUT # 9.7 K/uL (1.8-7.0); NEUT % 75.6 % (50.0-75.0); PLATELET COUNT 150 K/uL (130-400); RBC 2.86 Mil/uL (4.40-5.90); RED CELL DISTRIBUTION WIDTH 20.9 % (11.5-14.5); WHITE BLOOD COUNT 12.8 K/uL (4.8-10.8)
[2018-03-26 09:07] LABS: ALT/SGPT 39 U/L (21-72); AST/SGOT 26 U/L (17-59); BLOOD UREA NITROGEN 20 mg/dL (9-20); GFR NON-AFRICAN AMERICAN > 60
[2018-03-26 10:06] LABS: TOTAL CELLS COUNTED 100
[2018-03-26 10:09] LABS: BANDS 1 % (0-2); EOSINOPHIL 5 % (0-4); LYMPHOCYTE 4 % (20-40); MONOCYTE 11 % (0-10); NEUTROPHIL 79 % (50-75); PLATELET ESTIMATE NORMAL (NORMAL)
[2018-03-26] MEDS: Saccharomyces Boulardi 250 mg Cap PO SCH ×2 (10:09→21:50)
[2018-03-26] MEDS: Pantoprazole 40 mg EC Tab PO SCH (10:09)
[2018-03-26 10:10] LABS: ANISOCYTOSIS MODERATE; HYPOCHROMIC MODERATE; POIKILOCYTOSIS SLIGHT; TARGET CELLS SLIGHT
[2018-03-26 10:11] LABS: LARGE PLATELETS PRESENT; OVALOCYTES SLIGHT
[2018-03-26] MEDS ORDERED: oxyCODONE 10 mg ER Tab (oxyCONTIN) PO STA (11:28)
[2018-03-26] MEDS ORDERED: Tramadol 25 mg PO ONE (12:30)
[2018-03-26] MEDS: Albuterol-Ipratrop 3 mg / 0.5 (3 ml) UD INH SCH ×4 (13:26→23:49)
--- NOTE | 2018-03-26 14:35 | CP.PCM.PN ---
Subjective - Date & Time of Evaluation Date of Evaluation: 03/26/18 Time of Evaluation: 09:00 - Subjective Subjective: Progress Note for Dr. White's Service Patient was seen and examined at bedside. Patient reports he has some generalized pain and difficulty breathing. Denied fever, chills, chest pain, abdominal pain, n/v/d/c, or urinary symptoms. Objective - Vital Signs/Intake and Output Vital Signs (last 24 hours): Temp Pulse Resp BP Pulse Ox 97.4 F L 95 H 18 114/64 95 03/26/18 07:00 03/26/18 07:00 03/26/18 07:00 03/26/18 07:00 03/26/18 07:00 - Medications Medications: Current Medications Albuterol/Ipratropium (Duoneb 3 Mg/0.5 Mg (3 Ml) Ud) 3 ml INH RQ4 [facility] Last Admin: 03/26/18 13:26 Dose: 3 ml Allopurinol (Zyloprim) 300 mg PO DAILY [facility] Last Admin: 03/26/18 10:09 Dose: 300 mg Benzonatate (Tessalon Perles) 200 mg PO DAILY [facility] Last Admin: 03/26/18 10:05 Dose: 200 mg Calcitriol (Rocaltrol) 0.25 mcg PO MWF [facility] Last Admin: 03/25/18 10:00 Dose: 0.25 mcg Finasteride (Proscar) 5 mg PO DAILY [facility] Last Admin: 03/26/18 10:08 Dose: 5 mg Guaifenesin (Mucinex La) 600 mg PO BID [facility] Heparin Sodium (Porcine) (Heparin) 5,000 units SC Q12 [facility] Last Admin: 03/26/18 10:09 Dose: 5,000 units Azithromycin 500 mg/ Sodium (Chloride) 250 mls @ 250 mls/hr IVPB Q24H [facility] PRN Reason: Protocol Last Admin: 03/25/18 18:07 Dose: 250 mls/hr Ceftriaxone Sodium 1 gm/ (Sodium Chloride) 100 mls @ 100 mls/hr IVPB Q24H [facility] PRN Reason: Protocol Last Admin: 03/25/18 17:35 Dose: 100 mls/hr Pantoprazole Sodium (Protonix Ec Tab) 40 mg PO DAILY [facility] Last Admin: 03/26/18 10:09 Dose: 40 mg Promethazine HCl/Dextromethorphan (Phenergan Dm Syrup) 5 ml PO Q4 PRN PRN Reason: Cough Last Admin: 03/24/18 17:34 Dose: 5 ml Rosuvastatin Calcium (Crestor) 20 mg PO HS [facility] Last Admin: 03/25/18 23:01 Dose: 20 mg Saccharomyces Boulardii (Florastor) 250 mg PO Q12 [facility] Last Admin: 03/26/18 10:09 Dose: 250 mg Tamsulosin HCl (Flomax) 0.4 mg PO DAILY [facility] Last Admin: 03/26/18 10:08 Dose: 0.4 mg Zolpidem Tartrate (Ambien) 5 mg PO HS PRN PRN Reason: Insomnia Last Admin: 03/25/18 23:01 Dose: 5 mg - Labs Labs: 03/26/18 08:16 03/26/18 08:16 - Constitutional Appears: Chronically Ill - Head Exam Head Exam: NORMAL INSPECTION, NORMOCEPHALIC - Eye Exam Eye Exam: EOMI, Normal appearance, PERRL Pupil Exam: NORMAL ACCOMODATION - ENT Exam ENT Exam: Mucous Membranes Dry - Respiratory Exam Respiratory Exam: Decreased Breath Sounds, NORMAL BREATHING PATTERN. absent: Rales, Rhonchi, Wheezes - Cardiovascular Exam Cardiovascular Exam: REGULAR RHYTHM - GI/Abdominal Exam GI & Abdominal Exam: Soft, Normal Bowel Sounds. absent: Distended, Tenderness - Extremities Exam Extremities Exam: Normal Inspection, Pedal Edema. absent: Tenderness - Neurological Exam Neurological Exam: Alert, Awake, Oriented x3 - Psychiatric Exam Psychiatric exam: Normal Affect, Normal Mood - Skin Skin Exam: Dry, Intact, Normal Color, Warm Assessment and Plan - Assessment and Plan (Free Text) Plan: Non-Hodgkin's Lymphoma/Pneumonia - Heme/onc, Dr. Gilliam consulted. Imaging: - CXR 03/20:Multiple pulmonary masses seen throughout both lungs which may represent underlying metastatic disease and or neoplasm. Correlation with chest CT is recommended. Confluent consolidative changes at the lung bases. Bilateral hilar prominence. Right chest wall port with tip extending into the cavoatrial junction - Chest CT w/o IV contrast 03/20:Right-sided MediPort extends the level the right atrium. Innumerable bilateral pulmonary masses consistent with metastatic disease. Mediastinal adenopathy. Partially imaged bilateral low-density renal lesions may reflect cysts, however incompletely characterized due to lack of IV contrast and incomplete inclusion within the confines of a chest CT - Pending: CT neck/chest/abd/pelvis to assess for mets. Patient allergic to PO and IV contrast so will need to get noncontrast CT Medications: * Duoneb 3mL INH q4h [facility] * Phenergan 5ml PO Q4H * Mucinex 600mg PO BID * Benzonatate 200mg PO daily * Calcitriol 0.25mcg PO MWF * Continue Rocephin and Zithromax HLD Resumed home med: * Crestor 20 mg po qd Anemia of Chronic Disease - Will continue to monitor - Baseline 9.0's - Will transfuse as needed BPH Restart home meds: * Tamsulosin 0.4mg PO daily * Finasteride 5mg PO daily Gout Restarted home meds: * Allopurinol 300mg PO daily Insomnia Continue Ambien as needed Hypotension Continue to monitor Prophylactic Care - GI: Protonix 40mg PO daily (home medication) - DVT: Heparin 5,000u SC q12h, SCDs - Palliative Care consulted All medical management per Dr. White. Case discussed w/ Dr. White, Marva Martinez DO, PGY2
--- NOTE | 2018-03-26 14:36 | CT ---
Date of service: 03/26/2018 PROCEDURE: CT NECK WITHOUT CONTRAST HISTORY: LYMPHOMA COMPARISON: None available. TECHNIQUE: CT of the neck without intravenous contrast. Coronal and sagittal reformats generated. Radiation dose: DLP 487.24 mGy-cm This CT exam was performed using one or more of the following dose reduction techniques: Automated exposure control, adjustment of the mA and/or kV according to patient size, and/or use of iterative reconstruction technique. FINDINGS: Suboptimal assessment without IV contrast administration NASOPHARYNX: Unremarkable. SUPRAHYOID NECK: Unremarkable oropharynx, oral cavity, parapharyngeal space and retropharyngeal space. INFRAHYOID NECK: Unremarkable larynx, hypopharynx, and supraglottic space. Vocal cords intact. MASS: None. GLANDS: Parotid and submandibular glands unremarkable. Normal size thyroid gland, without nodule. LYMPH NODES: Normal. No lymphadenopathy. CERVICAL SPINE: No fracture or focal lesion. OTHER FINDINGS: Large foci of atherosclerotic calcification noted at the carotid bifurcation and proximal internal carotid arteries. There are bilateral pleural effusion noted at the upper portion of the chest. Partially imaged right [id number] with the catheter extending to the jugular vein and SVC. Partial opacification of the bilateral mastoid air cells and middle ears more prominent on the right suspicious for otomastoiditis. IMPRESSION: Suboptimal assessment without IV contrast administration. No CT evidence of significant lymphadenopathy in the neck. No definite evidence of mass lesion in the neck. Partial opacification of the mastoids and middle ears more prominent on the right suspicious for otomastoiditis. Please correlate clinically.
--- NOTE | 2018-03-26 15:02 | CT ---
Date of service: 03/26/2018 PROCEDURE: CT Chest, Abdomen and Pelvis without intravenous contrast HISTORY: r/o mets COMPARISON: Comparison is made to the previous CT of the chest without contrast dated 03/20/2018 TECHNIQUE: Radiation dose: Total exam DLP = 1076.68 mGy-cm. This CT exam was performed using one or more of the following dose reduction techniques: Automated exposure control, adjustment of the mA and/or kV according to patient size, and/or use of iterative reconstruction technique. FINDINGS: CT CHEST WITHOUT CONTRAST: LUNGS: Again noted are multiple mass lesions in the lungs likely represent metastasis. Partial atelectasis of the bilateral lower lobes is again noted due to large bilateral pleural effusions. MEDIASTINUM: The heart is mildly enlarged. The thoracic aorta is ectatic and tortuous. The main pulmonary artery is mildly enlarged. LYMPH NODES: There are mildly enlarged mediastinal lymphadenopathy noted. No evidence of significant axillary lymphadenopathy. PLEURA: Large bilateral pleural effusions are again noted. BONES: Unremarkable. OTHER FINDINGS: None. CT ABDOMEN AND PELVIS: LIVER: Limited assessment without IV contrast administration. No gross lesion or ductal dilatation. GALLBLADDER AND BILE DUCTS: Unremarkable. PANCREAS: Unremarkable. No gross lesion or ductal dilatation. SPLEEN: Unremarkable. ADRENALS: Unremarkable. No mass. KIDNEYS AND URETERS: Again noted are multiple low-attenuation lesions in the kidneys. No evidence of nephrolithiasis or hydronephrosis. VASCULATURE: Unremarkable. No aortic aneurysm. BOWEL: Limited assessment of the GI system without oral contrast administration. Suspicious for cecal and right colon wall thickening. Scattered colonic diverticulosis without evidence of diverticulitis. No evidence of small bowel obstruction. APPENDIX: No evidence of appendicitis. PERITONEUM: Unremarkable. No free fluid. No free air. LYMPH NODES: Unremarkable. No enlarged lymph nodes. BLADDER: Unremarkable. REPRODUCTIVE: Large calcification noted in the prostate. BONES: No acute fracture. OTHER FINDINGS: None. IMPRESSION: Multiple mass lesions in the lungs consistent with widespread metastasis. 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 Mildly enlarged mediastinal lymph nodes. No evidence of mass lesion in the upper abdomen solid organs noted in this limited study without IV contrast administration. No evidence of lymphadenopathy in the abdomen and pelvis.
[2018-03-26] MEDS ORDERED: Albuterol-Ipratrop 3 mg / 0.5 (3 ml) UD INH STA (15:04)
[2018-03-26] MEDS ORDERED: Acetylcysteine 20% Inhal Soln (4ml) INH STA (15:21)
[2018-03-26] MEDS: guaiFENesin 600 mg ER Tab PO SCH (17:44)
[2018-03-26] MEDS ORDERED: Tramadol 25 mg PO PRN (18:00)
[2018-03-26] MEDS: Azithromycin 500 MG in Sodium Chloride 0.9% 250 ML IVPB SCH (19:15)
[2018-03-26] MEDS ORDERED: oxyCODONE 10 mg ER Tab (oxyCONTIN) PO SCH (22:00)
[2018-03-27] MEDS: Albuterol-Ipratrop 3 mg / 0.5 (3 ml) UD INH SCH ×6 (03:26→23:33)
--- NOTE | 2018-03-27 07:30 | CP.PCM.PN ---
Subjective - Date & Time of Evaluation Date of Evaluation: 03/27/18 Time of Evaluation: 09:00 - Subjective Subjective: Progress Note for Dr. White's Service Patient was seen and examined at bedside. Patient reports he has some generalized pain and difficulty breathing. Denied fever, chills, chest pain, abdominal pain, n/v/d/c, or urinary symptoms. Objective - Vital Signs/Intake and Output Vital Signs (last 24 hours): Temp Pulse Resp BP Pulse Ox 97.3 F L 96 H 20 101/51 L 91 L 03/26/18 23:58 03/26/18 23:58 03/26/18 23:58 03/26/18 23:58 03/26/18 23:58 - Medications Medications: Current Medications Albuterol/Ipratropium (Duoneb 3 Mg/0.5 Mg (3 Ml) Ud) 3 ml INH RQ4 [facility] Last Admin: 03/27/18 03:26 Dose: 3 ml Allopurinol (Zyloprim) 300 mg PO DAILY [facility] Last Admin: 03/26/18 10:09 Dose: 300 mg Benzonatate (Tessalon Perles) 200 mg PO DAILY [facility] Last Admin: 03/26/18 10:05 Dose: 200 mg Calcitriol (Rocaltrol) 0.25 mcg PO MWF [facility] Last Admin: 03/25/18 10:00 Dose: 0.25 mcg Finasteride (Proscar) 5 mg PO DAILY [facility] Last Admin: 03/26/18 10:08 Dose: 5 mg Furosemide (Lasix) 40 mg IVP STAT STA Stop: 03/27/18 07:26 Furosemide (Lasix) 40 mg IVP DAILY [facility] Furosemide (Lasix) 20 mg IVP ONCE ONE Stop: 03/27/18 20:01 Guaifenesin (Mucinex La) 600 mg PO BID [facility] Last Admin: 03/26/18 17:44 Dose: 600 mg Heparin Sodium (Porcine) (Heparin) 5,000 units SC Q12 [facility] Last Admin: 03/26/18 21:50 Dose: 5,000 units Azithromycin 500 mg/ Sodium (Chloride) 250 mls @ 250 mls/hr IVPB Q24H [facility] PRN Reason: Protocol Last Admin: 03/26/18 19:15 Dose: 250 mls/hr Ceftriaxone Sodium 1 gm/ (Sodium Chloride) 100 mls @ 100 mls/hr IVPB Q24H [facility] PRN Reason: Protocol Last Admin: 03/26/18 17:44 Dose: 100 mls/hr Pantoprazole Sodium (Protonix Ec Tab) 40 mg PO DAILY [facility] Last Admin: 03/26/18 10:09 Dose: 40 mg Promethazine HCl/Dextromethorphan (Phenergan Dm Syrup) 5 ml PO Q4 PRN PRN Reason: Cough Last Admin: 03/24/18 17:34 Dose: 5 ml Rosuvastatin Calcium (Crestor) 20 mg PO HS [facility] Last Admin: 03/26/18 21:49 Dose: 20 mg Saccharomyces Boulardii (Florastor) 250 mg PO Q12 [facility] Last Admin: 03/26/18 21:50 Dose: 250 mg Tamsulosin HCl (Flomax) 0.4 mg PO DAILY [facility] Last Admin: 03/26/18 10:08 Dose: 0.4 mg Tramadol HCl (Ultram) 25 mg PO TID PRN PRN Reason: Pain, moderate (4-7) Last Admin: 03/26/18 17:44 Dose: 25 mg Zolpidem Tartrate (Ambien) 5 mg PO HS PRN PRN Reason: Insomnia Last Admin: 03/26/18 21:49 Dose: 5 mg - Labs Labs: 03/26/18 08:16 03/26/18 08:16 - Additional Findings Additional findings: - Constitutional Appears: Chronically Ill - Head Exam Head Exam: NORMAL INSPECTION, NORMOCEPHALIC - Eye Exam Eye Exam: EOMI, Normal appearance, PERRL Pupil Exam: NORMAL ACCOMODATION - ENT Exam ENT Exam: Mucous Membranes Dry - Respiratory Exam Respiratory Exam: Decreased Breath Sounds, RALES NOTED. NORMAL BREATHING PATTERN. absent: Rhonchi, Wheezes - Cardiovascular Exam Cardiovascular Exam: REGULAR RHYTHM - GI/Abdominal Exam GI & Abdominal Exam: Soft, Normal Bowel Sounds. absent: Distended, Tenderness - Extremities Exam Extremities Exam: Normal Inspection, Pedal Edema. absent: Tenderness - Neurological Exam Neurological Exam: Alert, Awake, Oriented x3 - Psychiatric Exam Psychiatric exam: Normal Affect, Normal Mood - Skin Skin Exam: Dry, Intact, Normal Color, Warm Assessment and Plan - Assessment and Plan (Free Text) Plan: Non-Hodgkin's Lymphoma/Pneumonia - Heme/onc, Dr. Gilliam consulted Imaging: - CXR 03/20:Multiple pulmonary masses seen throughout both lungs which may represent underlying metastatic disease and or neoplasm. Correlation with chest CT is recommended. Confluent consolidative changes at the lung bases. Bilateral hilar prominence. Right chest wall port with tip extending into the cavoatrial junction - Chest CT w/o IV contrast 03/20:Right-sided MediPort extends the level the right atrium. Innumerable bilateral pulmonary masses consistent with metastatic disease. Mediastinal adenopathy. Partially imaged bilateral low-density renal lesions may reflect cysts, however incompletely characterized due to lack of IV contrast and incomplete inclusion within the confines of a chest CT - CT chest, abdomen, and pelvis without IV contrast (due to allergy): Multiple mass lesions in the lungs consistent with widespread metastasis. 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 Mildly enlarged mediastinal lymph nodes. No evidence of mass lesion in the upper abdomen solid organs noted in this limited study without IV contrast administration. No evidence of lymphadenopathy in the abdomen and pelvis. - Neck Soft Tissue CT: Suboptimal assessment without IV contrast administration. No CT evidence of significant lymphadenopathy in the neck. No definite evidence of mass lesion in the neck. Partial opacification of the mastoids and middle ears more prominent on the right suspicious for otomastoiditis. Please correlate clinically. Medications: * Duoneb 3mL INH q4h [facility] * Phenergan 5ml PO Q4H * Mucinex 600mg PO BID * Benzonatate 200mg PO daily * Calcitriol 0.25mcg PO MWF * Discontinued Rocephin and Zithromax due to low procal * Decadron 8 mg IVP Q8H x 3 days ( as per Dr. Gilliam; due to lung masses) Bilateral Large Pleural Effusions - Dr. Nicholson - IR consulted - Paracentesis performed removing 1L from each side - Fluid cytology sent HLD Resumed home med: * Crestor 20 mg po qd Anemia of Chronic Disease - Baseline 9.0's - 03/27/18 hemoglobin 7.8 - will transfuse 1 unit today - Will continue to monitor BPH - Restart home meds: * Tamsulosin 0.4mg PO daily * Finasteride 5mg PO daily Gout - Restarted home meds: * Allopurinol 300mg PO daily Insomnia - Continue Ambien as needed Hypotension - Continue to monitor Prophylactic Care - GI: Protonix 40mg PO daily (home medication) - DVT: Heparin 5,000u SC q8h, SCDs - Palliative Care consulted All medical management per Dr. White. Case discussed w/ Dr. White, Marva Martinez DO, PGY2
--- NOTE | 2018-03-27 07:59 | CON ---
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 He is status post chemotherapy with CHOP and Rituxan. He was doing quite well to only about a week or two prior to admission. He started developing cough and increasing shortness of breath. He came to the hospital with hypotension with a blood pressure of and severe weakness etc. He seems to be improving in terms of fevers etc., however, cough. However, the CAT scan showed multiple nodules in his lung. I had a long talk with the daughter yesterday and his son-in-law yesterday in the office. I explained that it is uncommon for lymphoma to return this way in the lungs. His mouth is okay. His neck is okay. He does not seem to have any lymphadenopathy even on the CAT scan, the mediastinal lymph nodes are negative. He did come in with severe bilateral pneumonia; however, this may lymphoma. I suggested that we repeat the CAT scan. He is allergic to the dye. He is going to get a CAT scan without intravenous dye, and we will re-evaluate again the neck, the lungs, and the abdomen. Now, he has been on antibiotics for a week, and we will re-evaluate. If these are positive as these continue to be nodules, we have to discuss with the Pulmonary whether we can do a biopsy or bronchoscopy. If he is for this, he is still on a rebreather oxygen mask. Family and I will discuss whether we should place him on hospice or take the chance of collapsing his lung with a biopsy. At this point, we will continue antibiotics, continue the supportive care, and we will do a CAT scan hopefully today and see where we are. I will speak with the family again tomorrow. Renny Gilliam MD
[2018-03-27 08:17] LABS: BASO # 0.1 K/uL (0.0-0.2); BASO % 0.5 % (0.0-2.0); EOS # 0.2 K/uL (0.0-0.7); EOS % 1.4 % (0.0-4.0); HEMOGLOBIN 7.8 g/dL (12.0-18.0); LYMPH # 0.5 K/uL (1.0-4.3); MEAN CORPUSCULAR HEMOGLOBIN 28.3 pg (27.0-31.0); MEAN CORPUSCULAR HGB CONC 33.3 g/dL (33.0-37.0); MONO # 1.7 K/uL (0.0-0.8); MONO % 13.8 % (0.0-10.0); NEUT # 9.7 K/uL (1.8-7.0); NEUT % 80.3 % (50.0-75.0); PLATELET COUNT 151 K/uL (130-400); RBC 2.76 Mil/uL (4.40-5.90); RED CELL DISTRIBUTION WIDTH 20.9 % (11.5-14.5); WHITE BLOOD COUNT 12.1 K/uL (4.8-10.8)
[2018-03-27] MEDS ORDERED: Dexamethasone 4 mg/1 ml IVP STA (08:19)
[2018-03-27 08:48] LABS: ALB/GLOB RATIO 1.1 (1.0-2.1); ALT/SGPT 34 U/L (21-72); AST/SGOT 14 U/L (17-59); BLOOD UREA NITROGEN 24 mg/dL (9-20); CALCIUM 9.8 mg/dl (8.6-10.4); GFR NON-AFRICAN AMERICAN 58
--- NOTE | 2018-03-27 09:02 | RAD ---
Date of service: 03/27/2018 PROCEDURE: CHEST RADIOGRAPH, 1 VIEW HISTORY: S/P Thoracentesis COMPARISON: Portable chest 03/20/2018. FINDINGS: LUNGS: Right MediPort unchanged in position. Innumerable pulmonary masses are again scattered bilaterally inside outside sales representative of metastases most likely. Underlying airspace disease at the bilateral bases is difficult to exclude though mild if present. Bilateral pleural effusions are mild. No pneumothorax bilaterally. Cardiomediastinal is stable. No pulmonary vascular congestion. PLEURA: As above. CARDIOVASCULAR: As above. OSSEOUS STRUCTURES: No significant abnormalities. VISUALIZED UPPER ABDOMEN: Normal. OTHER FINDINGS: None. IMPRESSION: Mild bilateral pleural effusions are identified. No pneumothorax bilaterally. Innumerable pulmonary nodules identified bilaterally. Underlying airspace disease difficult to excluded both lung bases.
[2018-03-27 10:04] LABS: INR 1.2; PROTHROMBIN TIME 13.6 SECONDS (9.7-12.2)
--- NOTE | 2018-03-27 10:18 | PCM.SURG1 ---
Surgeon's Initial Post Op Note - Surgeon's Notes Surgeon: Cuauhtemoc Nicholson MD Supervisor Wound: NONE Type of Anesthesia: Local Pre-Operative Diagnosis: Lymphoma, pleural effusion Operative Findings: US showed moderate right and left pleural effusion Post-Operative Diagnosis: Lymphoma, pleural effusion Operation Performed: US guided right and left thoracentesis Specimen/Specimens Removed: 1 liter straw colored fluid right lung; 1 liter straw colored fluid left lung Estimated Blood Loss: EBL {In ML}: 0 Blood Products Given: N/A Drains Used: No Drains Post-Op Condition: Poor Date of Surgery/Procedure: 03/27/18 Time of Surgery/Procedure: 10:15
[2018-03-27 10:27] LABS: ANISOCYTOSIS MODERATE; EOSINOPHIL 2 % (0-4); HYPOCHROMIC MODERATE; LYMPHOCYTE 7 % (20-40); MONOCYTE 12 % (0-10); NEUTROPHIL 79 % (50-75); PLATELET ESTIMATE NORMAL (NORMAL); TOTAL CELLS COUNTED 100
[2018-03-27 10:28] LABS: TARGET CELLS SLIGHT
[2018-03-27] MEDS: guaiFENesin 600 mg ER Tab PO SCH ×2 (10:51→17:48)
[2018-03-27] MEDS: Saccharomyces Boulardi 250 mg Cap PO SCH (10:51)
[2018-03-27] MEDS: Pantoprazole 40 mg EC Tab PO SCH (10:51)
[2018-03-27 12:00] LABS: BODY FLUID TYPE PLEURAL/THORACENTESI
--- NOTE | 2018-03-27 12:24 | RAD ---
Date of service: 03/27/2018 PROCEDURE: CHEST RADIOGRAPH, 1 VIEW HISTORY: s/p bilateral thoracentesis. COMPARISON: Chest radiograph performed approximately 2 hours prior FINDINGS: LUNGS: Multifocal pulmonary metastases. Bibasilar atelectasis. PLEURA: Trace/small residual bilateral pleural effusions. No appreciable pneumothorax. CARDIOVASCULAR: Atherosclerotic aortic calcifications. Cardiomediastinal silhouette stably enlarged. OSSEOUS STRUCTURES: Unchanged. VISUALIZED UPPER ABDOMEN: Normal. OTHER FINDINGS: Right internal jugular access chest port, unchanged. IMPRESSION: Trace/small residual bilateral pleural effusions post bilateral thoracentesis. No appreciable pneumothorax.
[2018-03-27 12:56] LABS: BF GROSS APPEARANCE SL CLOUDY (CLEAR); BODY FLUID MONO/MACROPHAGE 1 % (0-0); BODY FLUID TOTAL COUNT 100 (0-0)
--- NOTE | 2018-03-27 13:35 | US ---
PROCEDURE: Date of procedure: 03/27/2018 Procedure: 1. Ultrasound-guided Right thoracentesis, CPT 68399 Medications: 6cc 1% Lidocaine HISTORY: Right pleural effusion, shortness of breath TECHNIQUE: Following informed consent ,the Patients' right chest was marked. Procedure time-out was called, and the patient was placed in the sitting position and limited ultrasound showed a large right effusion. The patient's right back was prepped and draped in the usual sterile fashion. After the skin was anesthetized with lidocaine, a drainage catheter was advanced under ultrasound guidance into the pleural space. Ultrasound-guided thoracentesis was performed. A total of 1000 cubic centimeters of straw-colored fluid removed without complication. A Xeroform dressing was applied. IMPRESSION: Ultrasound guided Right thoracentesis. There were no immediate complications.
--- NOTE | 2018-03-27 13:36 | US ---
PROCEDURE: Date of procedure: 03/27/2018 Procedure: 1. Ultrasound-guided left thoracentesis, CPT 78228 Medications: 4cc 1% Lidocaine HISTORY: Left pleural effusion, shortness of breath TECHNIQUE: Following informed consent ,the Patients' left chest was marked. Procedure time-out was called, and the patient was placed in the sitting position and limited ultrasound showed a large left effusion. The patient's left back was prepped and draped in the usual sterile fashion. After the skin was anesthetized with lidocaine, a drainage catheter was advanced under ultrasound guidance into the pleural space. Ultrasound-guided thoracentesis was performed. A total of 1000 cubic centimeters of straw-colored fluid removed without complication. A Xeroform dressing was applied. IMPRESSION: Ultrasound guided left thoracentesis. There were no immediate complications.
[2018-03-27] MEDS: Dexamethasone 4 mg/1 ml IVP SCH ×2 (14:41→21:29)
[2018-03-27] MEDS: Promethazine DM 6.25 mg-15 mg/5 ml Syrup PO PRN (17:48)
--- NOTE | 2018-03-27 19:55 | CON ---
Copied To: Renny Gilliam MD Attending MD: Renny Gilliam MD ONCOLOGY CONSULTATION HISTORY OF PRESENT ILLNESS: This is an 83-year-old man with lymphoma. He received his chemotherapy for lymphoma of his tonsil, metastatic to his lymph nodes and his lungs about a year ago. He was doing very well until only about a week or 2 before he came to the office, he started developing severe shortness of breath and cough. He came into the office hypotensive. We had to immediately put him on IV and bring him in. His CAT scan showed at that time that he had multiple nodules in his lungs. We treated him with antibiotics, but he just is not responding. He is very-very weak. PHYSICAL EXAMINATION GENERAL: The patient is slumped over. He is alert. He knows who I am, but he is very-very weak. Not eating at all. NODES: Nonpalpable. LUNGS: Show diffuse rhonchi. No vertebral tenderness. HEART: S1 and S2. ABDOMEN: Shows no liver, no spleen, and no tenderness. EXTREMITIES: No edema. LABORATORY DATA: The CAT scan again was done and this shows the large nodules. Again, I am not sure if they have changed much, but they are large nodules of 4 to 5 cm and he also has pleural effusions bilaterally. I spoke with the resident. We are going to ask Interventional Radiology to evaluate the patient to see if they can tap and help him breath. I am also going to start him high dose of Decadron 8 mg every 8 hours to see if we can help his breathing that way. His hemoglobin is down to 7.8. We may want to give him transfusion, but with his lungs, I may not be able to do it with so much congestion. We will see how he does on the steroids. Before I need to see his glucose is about 87. I am going to speak with the family today. His protein now is down to 3.8 total protein, which is also part of the effusion problem. He is very sick. I spoke with the daughter 2 days ago and told her that he could probably , but I will speak to them again today. Renny Gilliam MD [facility] # [id number]
[2018-03-28] MEDS: Albuterol-Ipratrop 3 mg / 0.5 (3 ml) UD INH SCH ×5 (03:15→21:18)
[2018-03-28] MEDS: Dexamethasone 4 mg/1 ml IVP SCH (05:31)
[2018-03-28 07:27] LABS: ALBUMIN 2.1 g/dL (3.5-5.0); ALT/SGPT 34 U/L (21-72); AST/SGOT 15 U/L (17-59); BLOOD UREA NITROGEN 24 mg/dL (9-20); CALCIUM 9.9 mg/dl (8.6-10.4); GFR NON-AFRICAN AMERICAN > 60
[2018-03-28 07:41] LABS: BASO % 0.2 % (0.0-2.0); LYMPH # 0.5 K/uL (1.0-4.3); LYMPH % 3.2 % (20.0-40.0); MEAN CELL VOLUME 82.8 fL (80.0-94.0); MEAN CORPUSCULAR HEMOGLOBIN 27.9 pg (27.0-31.0); MEAN CORPUSCULAR HGB CONC 33.7 g/dL (33.0-37.0); MEAN PLATELET VOLUME 11.1 fL (7.2-11.7); MONO # 0.6 K/uL (0.0-0.8); NEUT # 13.4 K/uL (1.8-7.0); NEUT % 92.6 % (50.0-75.0); NRBC % 0.1 % (0.0-2.0); PLATELET COUNT 172 K/uL (130-400); RBC 3.23 Mil/uL (4.40-5.90); RED CELL DISTRIBUTION WIDTH 20.1 % (11.5-14.5); WHITE BLOOD COUNT 14.5 K/uL (4.8-10.8)
--- NOTE | 2018-03-28 08:53 | RAD ---
Date of service: 03/28/2018 HISTORY: monitor bilateral pleural effusions COMPARISON: 03/27/2018 FINDINGS: LUNGS: Innumerable bilateral pulmonary nodules most likely reflecting pulmonary metastasis. No consolidation. PLEURA: Minimal blunting of right costophrenic angle may reflect very small pleural effusion. No left pleural effusion. No pneumothorax. CARDIOVASCULAR: Normal heart size. Right central venous infusion port. No congestive change. OSSEOUS STRUCTURES: No significant abnormalities. VISUALIZED UPPER ABDOMEN: Normal. OTHER FINDINGS: None. IMPRESSION: Pulmonary metastatic disease. Possible very small right pleural effusion.
[2018-03-28 09:27] LABS: BANDS 1 % (0-2); LYMPHOCYTE 5 % (20-40); MONOCYTE 1 % (0-10); NEUTROPHIL 93 % (50-75); PLATELET ESTIMATE NORMAL (NORMAL); TOTAL CELLS COUNTED 100
[2018-03-28 09:28] LABS: ANISOCYTOSIS SLIGHT; HYPOCHROMIC SLIGHT; POIKILOCYTOSIS SLIGHT; TARGET CELLS SLIGHT; TEARDROP CELLS SLIGHT
[2018-03-28 09:29] LABS: BURR CELLS SLIGHT; LARGE PLATELETS PRESENT; MICROCYTOSIS SLIGHT
[2018-03-28] MEDS ORDERED: Magnesium Sulfate 1 gm in D5W 1 GM/100 ML BAG IVPB SCH (09:30)
[2018-03-28] MEDS ORDERED: Potassium Chloride 20 mEq ER Tab PO ONE ×2 (10:00→13:45)
[2018-03-28] MEDS: Pantoprazole 40 mg EC Tab PO SCH (10:19)
[2018-03-28] MEDS: guaiFENesin 600 mg ER Tab PO SCH ×2 (10:19→17:39)
--- NOTE | 2018-03-28 13:18 | CP.PCM.PN ---
Subjective - Date & Time of Evaluation Date of Evaluation: 03/28/18 Time of Evaluation: 09:00 - Subjective Subjective: Progress Note for Dr. White's Service Patient was seen and examined at bedside. Patient reports his breathing has much improved. He is off nonrebreather, now on NC. Patient ambulated with PT, will need home O2. Denied fever, chills, chest pain, abdominal pain, n/v/d/c, or urinary symptoms. Objective - Vital Signs/Intake and Output Vital Signs (last 24 hours): Temp Pulse Resp BP Pulse Ox 97.5 F L 80 22 95/60 L 95 03/28/18 12:14 03/28/18 12:14 03/28/18 12:14 03/28/18 12:14 03/28/18 07:00 Intake and Output: 03/28/18 03/28/18 06:59 18:59 Intake Total 600 Output Total 300 400 Balance -300 200 - Medications Medications: Current Medications Albuterol/Ipratropium (Duoneb 3 Mg/0.5 Mg (3 Ml) Ud) 3 ml INH RQ4 [facility] Last Admin: 03/28/18 07:13 Dose: Not Given Allopurinol (Zyloprim) 300 mg PO DAILY [facility] Last Admin: 03/28/18 10:22 Dose: 300 mg Benzonatate (Tessalon Perles) 200 mg PO DAILY [facility] Last Admin: 03/28/18 10:22 Dose: 200 mg Calcitriol (Rocaltrol) 0.25 mcg PO MWF [facility] Last Admin: 03/27/18 10:51 Dose: 0.25 mcg Dexamethasone (Decadron) 4 mg PO BID [facility] Stop: 03/30/18 23:59 Finasteride (Proscar) 5 mg PO DAILY [facility] Last Admin: 03/28/18 10:19 Dose: 5 mg Guaifenesin (Mucinex La) 600 mg PO BID [facility] Stop: 03/28/18 23:59 Last Admin: 03/28/18 10:19 Dose: 600 mg Heparin Sodium (Porcine) (Heparin) 5,000 units SC Q8 [facility] Last Admin: 03/28/18 10:19 Dose: 5,000 units Pantoprazole Sodium (Protonix Ec Tab) 40 mg PO DAILY [facility] Last Admin: 03/28/18 10:19 Dose: 40 mg Promethazine HCl/Dextromethorphan (Phenergan Dm Syrup) 5 ml PO Q4 PRN PRN Reason: Cough Last Admin: 03/27/18 17:48 Dose: 5 ml Rosuvastatin Calcium (Crestor) 20 mg PO HS [facility] Last Admin: 03/27/18 21:21 Dose: 20 mg Tamsulosin HCl (Flomax) 0.4 mg PO DAILY [facility] Last Admin: 03/27/18 10:51 Dose: 0.4 mg Tramadol HCl (Ultram) 25 mg PO TID PRN PRN Reason: Pain, moderate (4-7) Last Admin: 03/26/18 17:44 Dose: 25 mg Zolpidem Tartrate (Ambien) 5 mg PO HS PRN PRN Reason: Insomnia Last Admin: 03/27/18 21:21 Dose: 5 mg - Labs Labs: 03/28/18 07:10 03/28/18 07:10 PT 13.6 SECONDS (9.7-12.2) H 03/27/18 09:38 INR 1.2 03/27/18 09:38 APTT 31 SECONDS (21-34) 03/27/18 09:38 - Constitutional Appears: No Acute Distress, Chronically Ill - Head Exam Head Exam: NORMAL INSPECTION, NORMOCEPHALIC - Eye Exam Eye Exam: EOMI, Normal appearance, PERRL Pupil Exam: NORMAL ACCOMODATION - ENT Exam ENT Exam: Mucous Membranes Moist - Respiratory Exam Respiratory Exam: Decreased Breath Sounds, Rales - Cardiovascular Exam Cardiovascular Exam: REGULAR RHYTHM - GI/Abdominal Exam GI & Abdominal Exam: Soft, Normal Bowel Sounds. absent: Distended, Tenderness - Extremities Exam Extremities Exam: Normal Inspection. absent: Pedal Edema, Tenderness - Neurological Exam Neurological Exam: Alert, Awake, Oriented x3 - Psychiatric Exam Psychiatric exam: Normal Affect, Normal Mood - Skin Skin Exam: Dry, Intact, Normal Color, Warm Assessment and Plan - Assessment and Plan (Free Text) Plan: Non-Hodgkin's Lymphoma/Pneumonia - Heme/onc, Dr. Gilliam consulted Imaging: - CXR 03/20:Multiple pulmonary masses seen throughout both lungs which may represent underlying metastatic disease and or neoplasm. Correlation with chest CT is recommended. Confluent consolidative changes at the lung bases. Bilateral hilar prominence. Right chest wall port with tip extending into the cavoatrial junction - Chest CT w/o IV contrast 03/20:Right-sided MediPort extends the level the right atrium. Innumerable bilateral pulmonary masses consistent with metastatic disease. Mediastinal adenopathy. Partially imaged bilateral low-density renal lesions may reflect cysts, however incompletely characterized due to lack of IV contrast and incomplete inclusion within the confines of a chest CT - CT chest, abdomen, and pelvis without IV contrast (due to allergy): Multiple mass lesions in the lungs consistent with widespread metastasis. 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 Mildly enlarged mediastinal lymph nodes. No evidence of mass lesion in the upper abdomen solid organs noted in this limited study without IV contrast administration. No evidence of lymphadenopathy in the abdomen and pelvis. - Neck Soft Tissue CT: Suboptimal assessment without IV contrast administration. No CT evidence of significant lymphadenopathy in the neck. No definite evidence of mass lesion in the neck. Partial opacification of the mastoids and middle ears more prominent on the right suspicious for otomastoiditis. Please correlate clinically. Medications: * Duoneb 3mL INH q4h [facility] * Phenergan 5ml PO Q4H * Mucinex 600mg PO BID * Benzonatate 200mg PO daily * Calcitriol 0.25mcg PO MWF * Discontinued Rocephin and Zithromax due to low procal * Decadron 8 mg IVP Q8H x 3 days ( as per Dr. Gilliam; due to lung masses) Bilateral Large Pleural Effusions - Dr. Nicholson - IR consulted - Paracentesis performed removing 1L from each side - Fluid cytology sent HLD Resumed home med: * Crestor 20 mg po qd Anemia of Chronic Disease - Baseline 9.0's - 03/27/18 hemoglobin 7.8 - will transfuse 1 unit today - Will continue to monitor BPH - Restart home meds: * Tamsulosin 0.4mg PO daily * Finasteride 5mg PO daily Gout - Restarted home meds: * Allopurinol 300mg PO daily Insomnia - Continue Ambien as needed Hypotension - Continue to monitor Prophylactic Care - GI: Protonix 40mg PO daily (home medication) - DVT: Heparin 5,000u SC q8h, SCDs - Palliative Care consulted - PT Eval: patient ambulated with PT and desaturated to 86% on RA. Patient saturates 92-94% on 4L NC. Disposition: Patient will follow up with Dr. Druck as outpatient to determine overall plan for goals of care. Patient will be discharged home 03/29/18 pending clinically assessment. All medical management per Dr. White. Case discussed w/ Dr. White, Marva Martinez DO, PGY2
[2018-03-28] MEDS: Magnesium Sulfate 1 gm in D5W 1 GM/100 ML BAG IVPB SCH ×2 (14:29→15:04)
[2018-03-28] MEDS: Promethazine DM 6.25 mg-15 mg/5 ml Syrup PO PRN (21:41)
[2018-03-28 23:36] VITALS: TEMP 97.4
[2018-03-29] MEDS: Albuterol-Ipratrop 3 mg / 0.5 (3 ml) UD INH SCH ×4 (00:43→12:08)
[2018-03-29] MEDS: Promethazine DM 6.25 mg-15 mg/5 ml Syrup PO PRN (05:47)
--- NOTE | 2018-03-29 06:15 | PN ---
Copied To: Renny Gilliam MD Attending MD: Renny Gilliam MD PROCEDURE DATE: 03/28/2018 HEMATOLOGY AND ONCOLOGY EVALUATION HISTORY OF PRESENT ILLNESS: He seems much better, much more comfortable today. We did two things yesterday. Number one, we sent him to Interventional Radiology. Dr. Nicholson was able to remove at least a liter of fluid from his lung. The second is, I started him on Decadron 8 mg every 8 hours. He is eating better. He is also feeling much better, much less shortness of breath. At this point, we will see what the cytology if they sent it and the fluid lymphoma, but reviewing the x-rays, especially now after the fluid was removed, one can see the lesions. There are small lesions in the lung, but it is progressive cancer and the Decadron should buy us some time. If he is feeling better over the next day or two, I think we will be able to send him home on the Decadron alone and then restart him on chemotherapy next week; however, we will just re-evaluate him over the next day or two to see if he is less short of breath. Renny Gilliam MD
[2018-03-29 07:09] LABS: BASO % 0.1 % (0.0-2.0); HEMOGLOBIN 10.1 g/dL (12.0-18.0); LYMPH # 0.4 K/uL (1.0-4.3); LYMPH % 2.6 % (20.0-40.0); MEAN CORPUSCULAR HEMOGLOBIN 28.2 pg (27.0-31.0); MEAN CORPUSCULAR HGB CONC 33.6 g/dL (33.0-37.0); MEAN PLATELET VOLUME 11.1 fL (7.2-11.7); MONO # 0.6 K/uL (0.0-0.8); MONO % 3.8 % (0.0-10.0); NEUT # 15.4 K/uL (1.8-7.0); NEUT % 93.5 % (50.0-75.0); PLATELET COUNT 206 K/uL (130-400); RBC 3.56 Mil/uL (4.40-5.90); RED CELL DISTRIBUTION WIDTH 20.2 % (11.5-14.5); WHITE BLOOD COUNT 16.4 K/uL (4.8-10.8)
[2018-03-29 07:32] LABS: ALB/GLOB RATIO 1.2 (1.0-2.1); ALBUMIN 2.3 g/dL (3.5-5.0); ALT/SGPT 50 U/L (21-72); AST/SGOT 31 U/L (17-59); BLOOD UREA NITROGEN 30 mg/dL (9-20); CALCIUM 10.4 mg/dl (8.6-10.4); GFR NON-AFRICAN AMERICAN 58
[2018-03-29 07:53] VITALS: RESP 18; O2SAT 94
[2018-03-29 09:12] VITALS: BP 138/68; PULSE 85
[2018-03-29] MEDS: Pantoprazole 40 mg EC Tab PO SCH (09:12)
[2018-03-29 10:09] LABS: ANISOCYTOSIS MODERATE; BANDS 2 % (0-2); HYPOCHROMIC SLIGHT; LYMPHOCYTE 1 % (20-40); MONOCYTE 2 % (0-10); NEUTROPHIL 95 % (50-75); PLATELET ESTIMATE NORMAL (NORMAL); TARGET CELLS MODERATE; TOTAL CELLS COUNTED 100
--- NOTE | 2018-03-29 10:21 | CP.PCM.PN ---
Subjective - Date & Time of Evaluation Date of Evaluation: 03/29/18 Time of Evaluation: 09:00 - Subjective Subjective: Progress Note for Dr. White's Service (Hospitalist Service is Covering) Patient was seen and examined at bedside. Patient reports his breathing has improved. Denied fever, chills, chest pain, abdominal pain, n/v/d/c, or urinary symptoms. Objective - Vital Signs/Intake and Output Vital Signs (last 24 hours): Temp Pulse Resp BP Pulse Ox 97.4 F L 85 18 138/68 94 L 03/29/18 07:52 03/29/18 09:11 03/29/18 07:52 03/29/18 09:11 03/29/18 07:52 Intake and Output: 03/29/18 03/29/18 06:59 18:59 Intake Total 800 Output Total 250 Balance 550 - Medications Medications: Current Medications Albuterol/Ipratropium (Duoneb 3 Mg/0.5 Mg (3 Ml) Ud) 3 ml INH RQ4 [facility] Last Admin: 03/29/18 07:58 Dose: 3 ml Allopurinol (Zyloprim) 300 mg PO DAILY [facility] Last Admin: 03/29/18 09:12 Dose: 300 mg Benzonatate (Tessalon Perles) 200 mg PO DAILY [facility] Last Admin: 03/29/18 09:12 Dose: 200 mg Calcitriol (Rocaltrol) 0.25 mcg PO MWF [facility] Last Admin: 03/29/18 08:41 Dose: 0.25 mcg Dexamethasone (Decadron) 4 mg PO BID [facility] Stop: 03/30/18 23:59 Last Admin: 03/29/18 09:12 Dose: 4 mg Finasteride (Proscar) 5 mg PO DAILY [facility] Last Admin: 03/29/18 09:12 Dose: 5 mg Heparin Sodium (Porcine) (Heparin) 5,000 units SC Q8 [facility] Last Admin: 03/29/18 05:46 Dose: 5,000 units Pantoprazole Sodium (Protonix Ec Tab) 40 mg PO DAILY [facility] Last Admin: 03/29/18 09:12 Dose: 40 mg Promethazine HCl/Dextromethorphan (Phenergan Dm Syrup) 5 ml PO Q4 PRN PRN Reason: Cough Last Admin: 03/29/18 05:47 Dose: 5 ml Rosuvastatin Calcium (Crestor) 20 mg PO HS SARAH Last Admin: 03/28/18 21:41 Dose: 20 mg Tamsulosin HCl (Flomax) 0.4 mg PO DAILY SARAH Last Admin: 03/29/18 09:12 Dose: 0.4 mg Tramadol HCl (Ultram) 25 mg PO TID PRN PRN Reason: Pain, moderate (4-7) Last Admin: 03/26/18 17:44 Dose: 25 mg Zolpidem Tartrate (Ambien) 5 mg PO HS PRN PRN Reason: Insomnia Last Admin: 03/28/18 21:41 Dose: 5 mg - Labs Labs: 03/29/18 07:05 03/29/18 07:05 PT 13.6 SECONDS (9.7-12.2) H 03/27/18 09:38 INR 1.2 03/27/18 09:38 APTT 31 SECONDS (21-34) 03/27/18 09:38 - Additional Findings Additional findings: - Head Exam Head Exam: NORMAL INSPECTION, NORMOCEPHALIC - Eye Exam Eye Exam: EOMI, Normal appearance, PERRL Pupil Exam: NORMAL ACCOMODATION - ENT Exam ENT Exam: Mucous Membranes Moist - Respiratory Exam Respiratory Exam: Decreased Breath Sounds, Rales - Cardiovascular Exam Cardiovascular Exam: REGULAR RHYTHM - GI/Abdominal Exam GI & Abdominal Exam: Soft, Normal Bowel Sounds. absent: Distended, Tenderness - Extremities Exam Extremities Exam: Normal Inspection. absent: Pedal Edema, Tenderness - Neurological Exam Neurological Exam: Alert, Awake, Oriented x3 - Psychiatric Exam Psychiatric exam: Normal Affect, Normal Mood - Skin Skin Exam: Dry, Intact, Normal Color, Warm Assessment and Plan - Assessment and Plan (Free Text) Plan: Non-Hodgkin's Lymphoma/Pneumonia - Heme/onc, Dr. Gilliam consulted Imaging: - CXR 03/20:Multiple pulmonary masses seen throughout both lungs which may represent underlying metastatic disease and or neoplasm. Correlation with chest CT is recommended. Confluent consolidative changes at the lung bases. Bilateral hilar prominence. Right chest wall port with tip extending into the cavoatrial junction - Chest CT w/o IV contrast 03/20:Right-sided MediPort extends the level the right atrium. Innumerable bilateral pulmonary masses consistent with metastatic disease. Mediastinal adenopathy. Partially imaged bilateral low-density renal lesions may reflect cysts, however incompletely characterized due to lack of IV contrast and incomplete inclusion within the confines of a chest CT - CT chest, abdomen, and pelvis without IV contrast (due to allergy): Multiple mass lesions in the lungs consistent with widespread metastasis. 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 Mildly enlarged mediastinal lymph nodes. No evidence of mass lesion in the upper abdomen solid organs noted in this limited study without IV contrast administration. No evidence of lymphadenopathy in the abdomen and pelvis. - Neck Soft Tissue CT: Suboptimal assessment without IV contrast administration. No CT evidence of significant lymphadenopathy in the neck. No definite evidence of mass lesion in the neck. Partial opacification of the mastoids and middle ears more prominent on the right suspicious for otomastoiditis. Please correlate clinically. Medications: * Duoneb 3mL INH q4h SARAH * Phenergan 5ml PO Q4H * Mucinex 600mg PO BID * Benzonatate 200mg PO daily * Calcitriol 0.25mcg PO MWF * Discontinued Rocephin and Zithromax due to low procal * Decadron 8 mg IVP Q8H x 3 days ( as per Dr. Gilliam; due to lung masses) changed to PO Bilateral Large Pleural Effusions - Dr. Nicholson - IR consulted - Paracentesis performed removing 1L from each side - Fluid cytology sent HLD Resumed home med: * Crestor 20 mg po qd Anemia of Chronic Disease - Baseline 9.0's - 03/27/18 hemoglobin 7.8 - will transfuse 1 unit today - Will continue to monitor BPH - Restart home meds: * Tamsulosin 0.4mg PO daily * Finasteride 5mg PO daily Gout - Restarted home meds: * Allopurinol 300mg PO daily Insomnia - Continue Ambien as needed Hypotension - Continue to monitor Prophylactic Care - GI: Protonix 40mg PO daily (home medication) - DVT: Heparin 5,000u SC q8h, SCDs - Palliative Care consulted - PT Eval: patient ambulated with PT and desaturated to 86% on RA. Patient saturates 92-94% on 4L NC. Disposition: Patient will follow up with Dr. Gilliam as outpatient to determine overall plan for goals of care. Patient is stable for discharge home. DW Dr. Carrasquillo (covering for Dr. White), Marva Martinez DO, PGY2
[2018-03-29] MEDS ORDERED: Heparin 1,000 UNITS in Sodium Chloride 0.9% 9 ML IV ONE (14:00)
--- NOTE | 2018-03-29 16:38 | CP.PCM.DIS ---
Provider - Provider Date of Admission: 03/20/18 14:32 Attending physician: Dara White MD Time Spent in preparation of Discharge (in minutes): 55 Hospital Course - Lab Results Lab Results: Micro Results 03/27/18 11:58 Body Fluid - Pleural Fluid Gram Stain - Final 03/27/18 11:58 Body Fluid - Pleural Fluid Body Fluid Culture - Preliminary NO GROWTH AFTER 2 DAYS 03/27/18 11:58 Chest Anaerobic Culture - Final NO ANAEROBES ISOLATED. 03/27/18 11:58 Other: Please Indicate Mycobacterial Culture - Preliminary 03/20/18 13:52 Blood Blood Culture - Final NO GROWTH AFTER 5 DAYS 03/20/18 13:52 Blood Gram Stain - Final TEST NOT PERFORMED 03/20/18 13:52 Blood Blood Culture - Final NO GROWTH AFTER 5 DAYS 03/20/18 13:52 Blood Gram Stain - Final TEST NOT PERFORMED 03/21/18 19:16 Sputum Gram Stain - Final 03/21/18 19:16 Sputum Sputum Culture - Final NORMAL ORAL ANDRYE 03/20/18 16:05 Urine Urine Culture - Final No Growth (<1,000 CFU/ML) Most Recent Lab Values WBC 16.4 K/uL (4.8-10.8) H 03/29/18 07:05 RBC 3.56 Mil/uL (4.40-5.90) L 03/29/18 07:05 Hgb 10.1 g/dL (12.0-18.0) L 03/29/18 07:05 Hct 29.9 % (35.0-51.0) L 03/29/18 07:05 MCV 84.0 fL (80.0-94.0) 03/29/18 07:05 MCH 28.2 pg (27.0-31.0) 03/29/18 07:05 MCHC 33.6 g/dL (33.0-37.0) 03/29/18 07:05 RDW 20.2 % (11.5-14.5) H 03/29/18 07:05 Plt Count 206 K/uL (130-400) 03/29/18 07:05 MPV 11.1 fL (7.2-11.7) 03/29/18 07:05 Neut % (Auto) 93.5 % (50.0-75.0) H 03/29/18 07:05 Lymph % (Auto) 2.6 % (20.0-40.0) L 03/29/18 07:05 Long % (Auto) 3.8 % (0.0-10.0) 03/29/18 07:05 Eos % (Auto) 0.0 % (0.0-4.0) 03/29/18 07:05 Baso % (Auto) 0.1 % (0.0-2.0) 03/29/18 07:05 Neut # (Auto) 15.4 K/uL (1.8-7.0) H 03/29/18 07:05 Lymph # (Auto) 0.4 K/uL (1.0-4.3) L 03/29/18 07:05 Long # (Auto) 0.6 K/uL (0.0-0.8) 03/29/18 07:05 Eos # (Auto) 0.0 K/uL (0.0-0.7) 03/29/18 07:05 Baso # (Auto) 0.0 K/uL (0.0-0.2) 03/29/18 07:05 Neutrophils % (Manual) 95 % (50-75) H 03/29/18 07:05 Band Neutrophils % 2 % (0-2) 03/29/18 07:05 Lymphocytes % (Manual) 1 % (20-40) L 03/29/18 07:05 Monocytes % (Manual) 2 % (0-10) 03/29/18 07:05 Eosinophils % (Manual) 2 % (0-4) 03/27/18 08:06 Basophils % (Manual) TEST NOT PERFORMED 03/26/18 08:16 Platelet Estimate Normal (NORMAL) 03/29/18 07:05 Large Platelets Present 03/28/18 07:10 Polychromasia Slight 03/23/18 07:10 Hypochromasia (manual) Slight 03/29/18 07:05 Poikilocytosis (manual Slight 03/28/18 07:10 Anisocytosis (manual) Moderate 03/29/18 07:05 Microcytosis (manual) Slight 03/28/18 07:10 Target Cells Moderate 03/29/18 07:05 Tear Drop Cells Slight 03/28/18 07:10 Ovalocytes Slight 03/26/18 08:16 Nasima Cells Slight 03/28/18 07:10 PT 13.6 SECONDS (9.7-12.2) H 03/27/18 09:38 INR 1.2 03/27/18 09:38 APTT 31 SECONDS (21-34) 03/27/18 09:38 Sodium 136 mmol/L (132-148) 03/29/18 07:05 Potassium 4.2 mmol/L (3.6-5.2) 03/29/18 07:05 Chloride 104 mmol/L (98-107) 03/29/18 07:05 Carbon Dioxide 22 mmol/L (22-30) 03/29/18 07:05 Anion Gap 14 (10-20) 03/29/18 07:05 BUN 30 mg/dL (9-20) H 03/29/18 07:05 Creatinine 1.2 mg/dL (0.8-1.5) 03/29/18 07:05 Est GFR ( Amer) > 60 03/29/18 07:05 Est GFR (Non-Af Amer) 58 03/29/18 07:05 Random Glucose 144 mg/dL (75-110) H 03/29/18 07:05 Calcium 10.4 mg/dl (8.6-10.4) 03/29/18 07:05 Phosphorus 3.8 mg/dL (2.5-4.5) 03/29/18 07:05 Magnesium 1.9 mg/dL (1.6-2.3) 03/29/18 07:05 Total Bilirubin 0.2 mg/dL (0.2-1.3) 03/29/18 07:05 AST 31 U/L (17-59) 03/29/18 07:05 ALT 50 U/L (21-72) 03/29/18 07:05 Alkaline Phosphatase 84 U/L (38-126) 03/29/18 07:05 Total Protein 4.3 g/dL (6.3-8.3) L 03/29/18 07:05 Albumin 2.3 g/dL (3.5-5.0) L 03/29/18 07:05 Globulin 1.9 gm/dL (2.2-3.9) L 03/29/18 07:05 Albumin/Globulin Ratio 1.2 (1.0-2.1) 03/29/18 07:05 Procalcitonin 0.34 NG/ML (0.19-0.49) 03/27/18 11:16 Urine Color Yellow (YELLOW) 03/20/18 16:05 Urine Clarity Clear (Clear) 03/20/18 16:05 Urine pH 6.0 (5.0-8.0) 03/20/18 16:05 Ur Specific [place] 1.015 (1.003-1.030) 03/20/18 16:05 Urine Protein Negative mg/dL (NEGATIVE) 03/20/18 16:05 Urine Glucose (UA) Normal mg/dL (Normal) 03/20/18 16:05 Urine Ketones Negative mg/dL (NEGATIVE) 03/20/18 16:05 Urine Blood Negative (NEGATIVE) 03/20/18 16:05 Urine Nitrate Negative (NEGATIVE) 03/20/18 16:05 Urine Bilirubin Negative (NEGATIVE) 03/20/18 16:05 Urine Urobilinogen 2.0 mg/dL (0.2-1.0) 03/20/18 16:05 Ur Leukocyte Esterase 2+ Miguel/uL (Negative) H 03/20/18 16:05 Urine WBC (Auto) 17 /hpf (0-5) H 03/20/18 16:05 Urine RBC (Auto) 1 /hpf (0-3) 03/20/18 16:05 Ur Squamous Epith Cells < 1 /hpf (0-5) 03/20/18 16:05 Urine Bacteria Rare (<OCC) 03/20/18 16:05 Hyaline Casts 3-5 /lpf (0-2) H 03/20/18 16:05 Fluid Source Pleural/thoracentesi 03/27/18 11:58 Fluid Appearance Sl cloudy (CLEAR) 03/27/18 11:58 Fluid WBC 958.0 /mm3 (0.0-300.0) H 03/27/18 11:58 Fluid RBC 947.0 /mm3 (0.0-0.0) H 03/27/18 11:58 Fluid Tot Cell Count 100 (0-0) H 03/27/18 11:58 Fluid Neutrophils 89.0 % (0-0) H 03/27/18 11:58 Fluid Lymphocytes 8.0 % (0-0) H 03/27/18 11:58 Fld Monocyte/Macrophag 1 % (0-0) H 03/27/18 11:58 Fluid Comment 03/27/18 11:58 Pleural pH 7.0 03/27/18 11:58 Ur L.pneumophila Ag Negative (NEGATIVE) 03/25/18 22:16 Mycoplasma pneumon IgM Negative (NEGATIVE) 03/25/18 19:56 TB Test (QFT) Nil 0.07 IU/mL 03/21/18 16:50 TB Test Mitogen - Nil 7.59 IU/mL 03/21/18 16:50 TB Test TB - Nil 0.01 IU/mL 03/21/18 16:50 TB Test (QFT) Negative (Negative) 03/21/18 16:50 Blood Type O POSITIVE 03/27/18 09:53 Antibody Screen Negative 03/27/18 09:53 - Hospital Course Hospital Course: Upon admission: Patient is a 83 year old male with a past medical history of Non-Hodgkin's Lymphoma (s/p chemo - last dose 06/2017), gout, BPH and hypotension (hx of multiple falls) presenting to the hospital after being instructed to come to in by Dr. Gilliam. The patient is romanian speaking. His daughter is at bedside and translated for patient. Patient has a history of a non-productive cough. Over the past week the cough has been becoming more and more productive. He has been producing large amounts of clear phlegm. The patient has also been experiencing low grade fevers. Patient also has a history of hypotension. He normally is admitted to [facility] [address] [facility] but decided to come here today. He has no other complaints at this time. Denies nausea, vomiting, diarrhea, constipation, chest pain, shortness of breath, abdominal pain, numbness or tingling. PMD: Dr. Michelle Kellogg ([facility]) PMH: Non-Hodgkin's Lymphoma (s/p chemo - last dose 06/2017), gout, BPH and hypotension (hx of multiple falls) PSH: Portacath (right side), Appendectomy Social: Denies tobacco, alcohol and illicit drug use Throughout Hospital Course: Non-Hodgkin's Lymphoma/Pneumonia - Heme/onc, Dr. Gilliam consulted Imaging: - CXR 03/20:Multiple pulmonary masses seen throughout both lungs which may represent underlying metastatic disease and or neoplasm. Correlation with chest CT is recommended. Confluent consolidative changes at the lung bases. Bilateral hilar prominence. Right chest wall port with tip extending into the cavoatrial junction - Chest CT w/o IV contrast 03/20:Right-sided MediPort extends the level the right atrium. Innumerable bilateral pulmonary masses consistent with metastatic disease. Mediastinal adenopathy. Partially imaged bilateral low-density renal lesions may reflect cysts, however incompletely characterized due to lack of IV contrast and incomplete inclusion within the confines of a chest CT - CT chest, abdomen, and pelvis without IV contrast (due to allergy): Multiple mass lesions in the lungs consistent with widespread metastasis. 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 Mildly enlarged mediastinal lymph nodes. No evidence of mass lesion in the upper abdomen solid organs noted in this limited study without IV contrast administration. No evidence of lymphadenopathy in the abdomen and pelvis. - Neck Soft Tissue CT: Suboptimal assessment without IV contrast administration. No CT evidence of significant lymphadenopathy in the neck. No definite evidence of mass lesion in the neck. Partial opacification of the mastoids and middle ears more prominent on the right suspicious for otomastoiditis. Please correlate clinically. Medications: * Duoneb 3mL INH q4h SARAH * Phenergan 5ml PO Q4H * Mucinex 600mg PO BID * Benzonatate 200mg PO daily * Calcitriol 0.25mcg PO MWF * Discontinued Rocephin and Zithromax due to low procal * Decadron 8 mg IVP Q8H x 3 days ( as per Dr. Gilliam; due to lung masses) changed to PO Bilateral Large Pleural Effusions - Dr. Nicholson - IR consulted - Paracentesis performed removing 1L from each side - Fluid cytology sent HLD Resumed home med: * Crestor 20 mg po qd Anemia of Chronic Disease - Baseline 9.0's - 03/27/18 hemoglobin 7.8 - will transfuse 1 unit today - Will continue to monitor BPH - Restart home meds: * Tamsulosin 0.4mg PO daily * Finasteride 5mg PO daily Gout - Restarted home meds: * Allopurinol 300mg PO daily Insomnia - Continue Ambien as needed Hypotension - Continue to monitor Prophylactic Care - GI: Protonix 40mg PO daily (home medication) - DVT: Heparin 5,000u SC q8h, SCDs - Palliative Care consulted - PT Eval: patient ambulated with PT and desaturated to 86% on RA. Patient saturates 92-94% on 4L NC. Disposition: Patient will follow up with Dr. Gilliam as outpatient to determine overall plan for goals of care. Patient is stable for discharge home. Please review EMR for full record. Discharge Exam - Additional Findings Additional findings: - Head Exam Head Exam: NORMAL INSPECTION, NORMOCEPHALIC - Eye Exam Eye Exam: EOMI, Normal appearance, PERRL Pupil Exam: NORMAL ACCOMODATION - ENT Exam ENT Exam: Mucous Membranes Moist - Respiratory Exam Respiratory Exam: Decreased Breath Sounds, Rales - Cardiovascular Exam Cardiovascular Exam: REGULAR RHYTHM - GI/Abdominal Exam GI & Abdominal Exam: Soft, Normal Bowel Sounds. absent: Distended, Tenderness - Extremities Exam Extremities Exam: Normal Inspection. absent: Pedal Edema, Tenderness - Neurological Exam Neurological Exam: Alert, Awake, Oriented x3 - Psychiatric Exam Psychiatric exam: Normal Affect, Normal Mood - Skin Skin Exam: Dry, Intact, Normal Color, Warm Discharge Plan - Discharge Medications Prescriptions: Dexamethasone [Decadron] 4 mg PO BID #4 tab - Follow Up Plan Condition: STABLE Disposition: HOME/ ROUTINE Instructions: Pneumonia, Adult (DC), Non-Hodgkin Lymphoma, Adult (DC) Additional Instructions: Patient is to follow up with Dr. Gilliam as outpatient to determine goals of care and treatment plan. Please follow up with Dr. Gilliam within 1 week. Please continue your current medications and also take Decadron 4mg by mouth once in the morning and once at night with food for 2 days. Please take care and be well! -- El paciente debe realizar un seguimiento con el Dr. Gilliam courtney paciente externo para determinar los objetivos de la atencin y el plan de tratamiento. Por favor , siga con el Dr. Gilliam dentro de 1 semana. Contine tomando vasile medicamentos actuales y tambin tome Decadron 4mg por va oral kael vez por la maana y kael vez por la noche con alimentos phillip 2 zamorano. Por favor, cudate y estate jalil! Referrals: Renny Gilliam MD [Staff Provider] -
[2018-03-29 21:46] LABS: LDH PLEURAL FLUID 211 U/L; TOTAL PROTEIN PLEURAL FLUID <3.0 g/dL
== END 2018-03-29 14:00 | disposition home or self-care (01) | DRG 194 ==
LOC: C.ER 12:03 → C.9E 14:32 → C.5S 20:47
PROVIDERS: ADMIT Internal Medicine Pulmonary Disease; ATTEND Internal Medicine Pulmonary Disease
PROC: 0W993ZZ Drainage of Right Pleural Cavity, Percutaneous Approach (ICD-10-PCS; principal; 2018-03-27)
PROC: 0W9B3ZZ Drainage of Left Pleural Cavity, Percutaneous Approach (ICD-10-PCS; 2018-03-27)
DX: J18.9 Pneumonia, unspecified organism (principal); C78.01 Secondary malignant neoplasm of right lung; C78.02 Secondary malignant neoplasm of left lung; C78.2 Secondary malignant neoplasm of pleura; C85.90 Non-Hodgkin lymphoma, unspecified, unspecified site; J91.8 Pleural effusion in other conditions classified elsewhere; I10 Essential (primary) hypertension; Z92.21 Personal history of antineoplastic chemotherapy; N40.0 Benign prostatic hyperplasia without lower urinary tract symptoms